=== PATIENT | male | born 1980 | race African-American/Black ===

== ENCOUNTER 2017-01-01 18:39 | Emergency (ER) | payer MEDICAID ==
[~2017-01-01] VITALS: Ht 170.2 cm; Wt 158.8 kg
[~2017-01-01 18:39] MED LIST: ALBUTEROL SULF8.5 GM INH; AUGMENTIN 875-1 EAC1 ORAL; AZITHROMYCIN250 MG ORAL; AZITHROMYCIN250 MG PO; CIPRO500 MG PO; IBUPROFEN800 MG ORAL; KEFLEX500 MG ORAL; NKM; NO MEDS; PHENAZOPYRIDIN200 MG ORAL; PHENERGAN/CODE120 ML PO; PROMETHAZINE-C118 ML PO; ROBITUSSIN DM5 ML ORAL
--- NOTE | 2017-01-01 19:25 | Emergency Room Report ---
History of Present Illness General Chief Complaint: Skin Rash/Abscess Source: Patient Present Illness HPI 36-year-old male presents to the emergency department complaining of a hard lump on the back of the right side of his neck since yesterday. Patient states that he has swelling, 7/10 in severity tenderness in addition to burning sensation. Patient states he may have been bitten by an insect. Patient denies fevers, chills or inability to move his neck. Patient states that it feels tight on the right side. Patient denies trauma or fall. He states he has a history of abscess in the past. Patient denies erythema or increased temperature palpation. Patient states he does not want any incisions made he wants to attempt oral antibiotics. Pt. denies itching, rash, or lesions elsewhere. Denies numbness tingling or loss of sensation or gross motor movements of the extremities, incontinence of bowel or bladder. Denies DM or hx of immune compromise. Denies CP, Palpitations, LOC, AMS, dizziness, Changes in Vision, Sensation, paresthesias, or a sudden severe headache. Allergies: Coded Allergies: No Known Allergies (Unverified , 05/04/16) Patient History Past Medical History: see triage record Past Surgical History: none Pertinent Family History: none Immunizations: UTD Reviewed Nursing Documentation: PMH: Agreed, PSxH: Agreed Nursing Documentation-PMH Past Medical History: No Stated History Review of Systems All Other Systems: negative except mentioned in HPI Physical Exam Vital Signs Date Time Temp Pulse Resp B/P Pulse Ox O2 Delivery O2 Flow Rate FiO2 01/01/17 18:43 98.1 81 18 97 Room Air Sp02 EP Interpretation: reviewed, normal General Appearance: no apparent distress, alert, GCS 15, non-toxic Head: normocephalic, atraumatic Eyes: bilateral eye PERRL, bilateral eye normal inspection ENT: hearing grossly normal, normal pharynx, no angioedema, normal voice Neck: full range of motion, no bony tend, supple/symm/no masses, tender lateral - right lateral ttp where 2cm induration palpated, no erythem or increased temperature to palpation, no palpable fluctuance noted. Respiratory: lungs clear, normal breath sounds, speaking full sentences Cardiovascular #1: regular rate, rhythm, no edema Rectal: deferred Genitourinary: normal inspection, no CVA tenderness Musculoskeletal: back normal, gait/station normal, normal range of motion, non- tender Neurologic: alert, oriented x3, responsive, motor strength/tone normal, sensory intact, speech normal Psychiatric: judgement/insight normal, memory normal, mood/affect normal Skin: normal color, no rash, warm/dry, well hydrated, other - right lateral ttp where 2cm induration palpated, no erythem or increased temperature to palpation, no palpable fluctuance noted. Lymphatic: no adenopathy Medical Decision Making PA Attestation Dr. Fontaine is my supervising Physician whom patient management has been discussed with. Diagnostic Impression: Primary Impression: Abscess ER Course 36-year-old male presents to the emergency department complaining of a hard lump on the back of the right side of his neck since yesterday. Patient states that he has swelling, 7/10 in severity tenderness in addition to burning sensation. Patient states he may have been bitten by an insect. Patient denies fevers, chills or inability to move his neck. Patient states that it feels tight on the right side. Patient denies trauma or fall. He states he has a history of abscess in the past. Patient denies erythema or increased temperature palpation. Patient states he does not want any incisions made he wants to attempt oral antibiotics. Pt. denies itching, rash, or lesions elsewhere. Denies numbness tingling or loss of sensation or gross motor movements of the extremities, incontinence of bowel or bladder. Denies DM or hx of immune compromise. Denies CP, Palpitations, LOC, AMS, dizziness, Changes in Vision, Sensation, paresthesias, or a sudden severe headache. Ddx considered but are not limited to cellulitis,insect bite, ingrown hair, folliculitis or abscess just to name a few. Vital signs: are WNL, pt. is afebrile H&PE are most consistent with soft tissue abscess of the right posterior neck, induration palpated, no fluctuance. ORDERS: none required at this time, the diagnosis is clinical ED INTERVENTIONS: -Pt. does not want I & D, and I feel that due to location if I & D were to be performed it should be done by a specialist. d/w pt. that he will be treated with oral abx, and that he should follow up with PCP , and if symptoms worsen or new symptoms appear he should return promptly to the ED. DISCHARGE: At this time pt. is stable for d/c to home. Will provide printed patient care instructions, and any necessary prescriptions. Care plan and follow up instructions have been discussed with the patient prior to discharge. Last Vital Signs Date Time Temp Pulse Resp B/P Pulse Ox O2 Delivery O2 Flow Rate FiO2 01/01/17 18:43 98.1 81 18 97 Room Air Disposition: HOME, SELF-CARE Condition: Stable Scripts Cyclobenzaprine Hcl* (FLEXERIL*) 10 Mg Tablet 10 MG ORAL THREE TIMES A DAY for 7 Days, #21 TAB Prov: Keyanna InmanA. 01/01/17 Ibuprofen* (MOTRIN*) 600 Mg Tablet 600 MG ORAL THREE TIMES A DAY, #20 TAB 0 Refills Prov: Keyanna Inman 01/01/17 Trimethoprim/Sulfamethoxazole 160/800* (BACTRIM DS TABLET*) 1 Each Tablet 1 TAB ORAL TWICE A DAY for 7 Days, #14 TAB Prov: Keyanna InmanA. 01/01/17 Cephalexin* (KEFLEX*) 500 Mg Capsule 500 MG ORAL EVERY 12 HOURS for 7 Days, #14 CAP 0 Refills Prov: Keyanna InmanA. 01/01/17 Referrals: NOT CHOSEN [facility]/MD,REFERRING (PCP) Patient Instructions: Abscess Additional Instructions: Take medications as directed. Recommend Incision & Drainage by [employer] or Spinal Specialist. Follow up with a Primary Care Provider in 3-5 days, even if your symptoms have resolved. --Please review list of primary care clinics, if you do not already have a primary care provider Return sooner to ED if new symptoms occur, or current symptoms become worse. - Please note that this Emergency Department Report was dictated using [employer]tube bender technology software, occasionally this can lead to erroneous entry secondary to interpretation by the dictation equipment. Keyanna Inman Jan 01, 2017 19:25
[2017-01-01] MEDS ORDERED: CYCLOBENZAPRINE10 MG ORAL (19:28)
[2017-01-01] MEDS ORDERED: CEPHALEXIN500 MG ORAL (19:28)
[2017-01-01] MEDS ORDERED: BACTRIM DS TAB1 EAC1 ORAL (19:28)
[2017-01-01] MEDS ORDERED: IBUPROFEN600 MG ORAL (19:28)
[2017-01-01 19:35] VITALS: BP 131/70
== END 2017-01-01 19:35 | disposition home or self-care (01) ==
LOC: EMR 19:15
DX: L02.11 Cutaneous abscess of neck (principal)
CPT/HCPCS: 99284

== ENCOUNTER 2017-07-06 18:24 | Emergency (ER) | payer MEDICAID, OTHER ==
[~2017-07-06] VITALS: Ht 172.7 cm; Wt 140.6 kg
[~2017-07-06 18:24] MED LIST changes: +BACTRIM DS TAB1 EAC1 ORAL; +CEPHALEXIN500 MG ORAL; +CYCLOBENZAPRINE10 MG ORAL; +IBUPROFEN600 MG ORAL
[2017-07-06] MEDS ORDERED: TAMIFLU75 MG ORAL (19:04)
[2017-07-06 19:10] VITALS: BP 163/106
[2017-07-06] MEDS ORDERED: PROMETHAZINE-C118 M1 ORAL (19:11)
[2017-07-06 19:12] VITALS: BP 161/95
--- NOTE | 2017-07-07 21:23 | Emergency Room Report ---
History of Present Illness General Chief Complaint: Upper Respiratory Illness Source: Patient Present Illness HPI 36-year-old male presents ED for evaluation. States he's been having flulike symptoms for the last 3 days. Febrile at home. Body aches, cough with yellowish sputum. Denies sore throat or earache. Denies chest pain or shortness of breath. Denies sick contacts or recent travel. No other aggravating or relieving factors. Denies any other associated symptoms Allergies: Coded Allergies: No Known Allergies (Unverified , 05/04/16) Patient History Past Medical History: none Past Surgical History: none Pertinent Family History: none Social History: Denies: smoking, alcohol use, drug use Immunizations: UTD Reviewed Nursing Documentation: PMH: Agreed, PSxH: Agreed Nursing Documentation-PMH Past Medical History: No Stated History Review of Systems All Other Systems: negative except mentioned in HPI Physical Exam Vital Signs Date Time Temp Pulse Resp B/P (MAP) Pulse Ox O2 Delivery O2 Flow Rate FiO2 07/06/18 18:28 97.9 95 28 163/106 90 Room Air Sp02 EP Interpretation: reviewed, normal General Appearance: no apparent distress, alert, GCS 15, non-toxic, obese Head: normocephalic, atraumatic Eyes: bilateral eye normal inspection, bilateral eye PERRL ENT: hearing grossly normal, normal pharynx, no angioedema, normal voice Neck: full range of motion, supple/symm/no masses Respiratory: chest non-tender, lungs clear, normal breath sounds, speaking full sentences Cardiovascular #1: regular rate, rhythm, no edema Cardiovascular #2: 2+ carotid (R), 2+ carotid (L), 2+ radial (R), 2+ radial (L) , 2+ dorsalis pedis (R), 2+ dorsalis pedis (L) Gastrointestinal: normal bowel sounds, non tender, soft, non-distended, no guarding, no rebound Rectal: deferred Genitourinary: normal inspection, no CVA tenderness Musculoskeletal: back normal, gait/station normal, normal range of motion, non- tender Neurologic: alert, oriented x3, responsive, motor strength/tone normal, sensory intact, speech normal Psychiatric: judgement/insight normal, memory normal, mood/affect normal, no suicidal/homicidal ideation Reflexes: 3+ bicep (R), 3+ bicep (L), 3+ tricep (R), 3+ tricep (L), 3+ knee (R) , 3+ knee (L) Skin: normal color, no rash, warm/dry, well hydrated Lymphatic: no adenopathy Medical Decision Making Diagnostic Impression: Primary Impression: Flu-like symptoms ER Course Hospital Course 36-year-old M presents to ED complaining of fever + bodyaches + cough Differential diagnoses include: URI, pharyngitis, otitis media, influenza Clinical course Patient placed on stretcher. After initial history physical exam reveals an obese male in no acute distress. Bilateral TM unremarkable, no pharyngeal erythema. Lungs clear. No CVA tenderness. Clinical findings consistent with influenza. Given that I will treat with Tamiflu Diagnosis - influenza-like symptoms Stable and discharged home with prescriptions for tamiflu, promethazine/ codeine. drink plenty of fluids. Instructed to followup with PMD. Return to ED if symptoms recur or worsen Last Vital Signs Date Time Temp Pulse Resp B/P (MAP) Pulse Ox O2 Delivery O2 Flow Rate FiO2 07/06/17 19:12 97.9 98 22 161/95 92 Room Air Status: improved Disposition: HOME, SELF-CARE Condition: Stable Scripts Codeine/Promethazine Hcl* (PROMETHAZINE-CODEINE SYRUP*) 118 Ml Syrup 5 ML ORAL Q6H Y for For Cough, #118 ML 0 Refills Prov: SHERWIN VELAZQUEZ M.D. 07/06/17 Oseltamivir Phosphate (Tamiflu) 75 Mg Capsule 75 MG ORAL TWICE A DAY for 5 Days, CAP Prov: SHERWIN VELAZQUEZ M.D. 07/06/17 Referrals: [facility]ERR[facility] (PCP) Patient Instructions: Influenza, Adult, [id number] SHERWIN VELAZQUEZ M.D. Jul 07, 2017 21:23
== END 2017-07-06 19:12 | disposition home or self-care (01) ==
LOC: EMR 19:05
DX: J11.1 Influenza due to unidentified influenza virus with other respiratory manifestations (principal)
CPT/HCPCS: 99283

== ENCOUNTER 2017-10-12 22:57 | Emergency (ER) | payer OTHER ==
[~2017-10-12] VITALS: Ht 172.7 cm; Wt 149.7 kg
[~2017-10-12 22:57] MED LIST changes: +PROMETHAZINE-C118 M1 ORAL; +TAMIFLU75 MG ORAL
[2017-10-12] MEDS ORDERED: NKM (23:31)
[2017-10-12] MEDS ORDERED: FUROSEMIDE40 MG ORAL (23:59)
[2017-10-13 00:19] VITALS: BP 141/85
--- NOTE | 2017-10-13 01:10 | Emergency Room Report ---
History of Present Illness General Chief Complaint: Edema Source: Patient Present Illness HPI Patient presents with complaints of swelling in his feet Initially complains of swelling in both feet however at times he feels a left foot more swollen than the right side This is been ongoing for several months Denies any chest pain or shortness of breath denies any fall or trauma Denies any calf pain or swelling Denies any recent travel Allergies: Coded Allergies: No Known Allergies (Unverified , 10/12/17) Patient History Past Medical History: see triage record Pertinent Family History: none Reviewed Nursing Documentation: PMH: Agreed; PSxH: Agreed Nursing Documentation-PMH Past Medical History: No History, Except For Review of Systems All Other Systems: negative except mentioned in HPI Physical Exam Vital Signs Date Time Temp Pulse Resp B/P (MAP) Pulse Ox O2 Delivery O2 Flow Rate FiO2 10/12/17 23:27 98.3 82 16 141/85 95 Room Air 98.2 Sp02 EP Interpretation: reviewed, normal General Appearance: well appearing, no apparent distress - Morbidly obese Head: normocephalic, atraumatic Eyes: bilateral eye PERRL, bilateral eye EOMI ENT: normal pharynx Neck: full range of motion, supple Respiratory: lungs clear Cardiovascular #1: regular rate, rhythm Gastrointestinal: non tender, soft Musculoskeletal: normal inspection Neurologic: alert, oriented x3, responsive, machine erector III-XII nml as tested Skin: other - Patient has dependent edema appearance on both feet, including the ankles, the cath itself is nontender, no erythema neurovascularly intact Lymphatic: no adenopathy Medical Decision Making Diagnostic Impression: Primary Impression: Edema ER Course Multiple differentials are considered including but not limited to, renal pathology, infectious, vascular pathology DVT Patient has bilateral dependent edema blood work from previous presentations reveal normal kidney function I do not feel that the presentation is consistent with DVT and patient is stable for close outpatient follow-up , Last Vital Signs Date Time Temp Pulse Resp B/P (MAP) Pulse Ox O2 Delivery O2 Flow Rate FiO2 10/13/17 00:19 98.3 16 141/85 95 Room Air 98.2 10/13/17 00:19 98 Status: unchanged Disposition: HOME, SELF-CARE Condition: Stable Scripts Furosemide* (LASIX*) 40 Mg Tablet 20 MG ORAL DAILY, #20 TAB Prov: Valentino Lewis DO 10/12/17 Referrals: [facility]ERR[facility] (PCP) Patient Instructions: Edema, [id number], Peripheral Edema Additional Instructions: Patient is provided with the discharge instructions notified to follow up with primary doctor in the next 2-3 days otherwise return to the er with any worsening symptoms. Please note that this report is being documented using [employer] technology. This can lead to erroneous entry secondary to incorrect interpretation by the dictating instrument. Valentino Lewis DO October 13, 2017 01:10
== END 2017-10-13 00:22 | disposition home or self-care (01) ==
LOC: EMR 23:40
DX: R60.0 Localized edema (principal)
CPT/HCPCS: 99283

== ENCOUNTER 2018-01-14 00:22 | Emergency (ER) | payer OTHER ==
[~2018-01-14] VITALS: Ht 172.7 cm; Wt 140.6 kg
[~2018-01-14 00:22] MED LIST changes: +FUROSEMIDE40 MG ORAL
[2018-01-14] MEDS ORDERED: IBUPROFEN600 MG ORAL (01:35)
[2018-01-14] MEDS ORDERED: GENTAMICIN SULF15 ML OP (01:35)
[2018-01-14 01:50] VITALS: BP 115/70
[2018-01-14 01:56] VITALS: BP 115/70
--- NOTE | 2018-01-14 03:44 | Emergency Room Report ---
History of Present Illness General Chief Complaint: Eye Problems Source: Patient Present Illness HPI Patient reports that 2 days ago he was working with a bunAGRIMAPSe cord, when the end of the cord essentially sprung up and hit him in the right eye. Patient has some discomfort at that time, given that the discomfort has now persisted he presents to the ER He felt that there was some swelling around the eye as well Denies any visual change However he does feel some irritation on the right side Denies any headache Allergies: Coded Allergies: No Known Allergies (Unverified , 10/12/17) Patient History Past Medical History: see triage record Pertinent Family History: none Reviewed Nursing Documentation: PMH: Agreed; PSxH: Agreed Nursing Documentation-PMH Past Medical History: No Stated History Review of Systems All Other Systems: negative except mentioned in HPI Physical Exam Vital Signs Date Time Temp Pulse Resp B/P (MAP) Pulse Ox O2 Delivery O2 Flow Rate FiO2 01/14/18 00:39 98.2 86 16 115/70 95 Room Air 98.2 Sp02 EP Interpretation: reviewed, normal General Appearance: well appearing, no apparent distress Head: normocephalic, atraumatic Eyes: right eye other - Conjunctival irritation, fluorescing staining does not reveal any obvious uptake no foreign body. Pressures are equal subjectively on palpation; bilateral eye PERRL, bilateral eye EOMI ENT: normal pharynx, no angioedema Neck: supple Respiratory: lungs clear, normal breath sounds Musculoskeletal: normal inspection Neurologic: alert, oriented x3, responsive Skin: normal color, no rash Lymphatic: no adenopathy Medical Decision Making Diagnostic Impression: Primary Impression: corneal abrasion ER Course Patient has corneal injection, appears to have likely corneal abrasion, there is no signs of any ruptured globe, patient will be placed on antibiotic ointment , pain medication and requires close outpatient ophthalmology follow-up Last Vital Signs Date Time Temp Pulse Resp B/P (MAP) Pulse Ox O2 Delivery O2 Flow Rate FiO2 01/14/18 01:56 98.2 82 16 115/70 98 Room Air Status: unchanged Disposition: HOME, SELF-CARE Condition: Stable Scripts Ibuprofen* (MOTRIN*) 600 Mg Tablet 600 MG ORAL Q8H PRN for For Pain, #20 TAB 0 Refills Prov: Valentino Lewis DO 01/14/18 Gentamicin Sulfate (Gentamicin Sulfate) 5 Ml Drops 2 DROP OP BID for 7 Days, ML Prov: Valentino Lewis DO 01/14/18 Referrals: Darien Echeverria MD Departure Forms: Return to Work Return to Work in (Days): 1 Return to Work Date: Jan 15, 2018 Patient Instructions: Corneal Abrasion, [id number] Additional Instructions: Patient is provided with the discharge instructions notified to follow up Ophthalmology tomorrow. otherwise return to the er with any worsening symptoms. Please note that this report is being documented using [employer] technology. This can lead to erroneous entry secondary to incorrect interpretation by the dictating instrument. Valentino Lewis DO Jan 14, 2018 03:44
== END 2018-01-14 01:58 | disposition home or self-care (01) ==
LOC: EMR 01:00
DX: S05.01XA Injury of conjunctiva and corneal abrasion without foreign body, right eye, initial encounter (principal); W20.8XXA Other cause of strike by thrown, projected or falling object, initial encounter; Y93.89 Activity, other specified; Y92.89 Other specified places as the place of occurrence of the external cause
CPT/HCPCS: 99283

== ENCOUNTER 2018-04-07 21:51 | Emergency (ER) | payer MEDICAID, OTHER ==
[~2018-04-07] VITALS: Ht 172.7 cm; Wt 140.6 kg
[~2018-04-07 21:51] MED LIST changes: +GENTAMICIN SULF15 ML OP
[2018-04-07 22:08] VITALS: BP 128/74
[2018-04-07] MEDS ORDERED: Bactrim-DS 1 tab ORAL ONE (22:45)
[2018-04-07] MEDS ORDERED: BACTRIM DS TAB1 EAC1 ORAL (22:48)
--- NOTE | 2018-04-07 22:49 | Emergency Room Report ---
History of Present Illness General Chief Complaint: Skin Rash/Abscess Source: Patient Present Illness HPI This is a 37-year-old male with no past medical history. He presents with chief complaint of swelling and drainage from the neck. Onset was last night. He said he felt fever and chills last night. There was a big golf ball side abscess on his neck. It started draining. He came in to be reevaluated better now. Minimal pain. No nausea no vomiting. Fever resolved. Thought he may have had a spider bite. Allergies: Coded Allergies: No Known Allergies (Unverified , 10/12/17) Patient History Past Medical History: see triage record, old chart reviewed Past Surgical History: none Pertinent Family History: none Social History: Denies: smoking Immunizations: other Reviewed Nursing Documentation: PMH: Agreed; PSxH: Agreed Nursing Documentation-PMH Past Medical History: No History, Except For Review of Systems Eye: Denies: eye pain, blurred vision ENT: Denies: ear pain, nose congestion, throat swelling Respiratory: Denies: cough, shortness of breath Cardiovascular: Denies: chest pain, palpitations Gastrointestinal: Denies: abdominal pain, diarrhea, nausea, vomiting Musculoskeletal: Denies: back pain, joint pain Skin: Denies: rash Neurological: Denies: headache, numbness Endocrine: Denies: increased thirst, increased urine Hematologic/Lymphatic: Denies: easy bruising All Other Systems: negative except mentioned in HPI Physical Exam Vital Signs Date Time Temp Pulse Resp B/P (MAP) Pulse Ox O2 Delivery O2 Flow Rate FiO2 04/07/18 21:58 98.1 94 18 128/74 93 Room Air vitals normal Sp02 EP Interpretation: reviewed, normal General Appearance: well appearing, no apparent distress, alert, obese Head: normocephalic, atraumatic Eyes: bilateral eye PERRL, bilateral eye EOMI ENT: hearing grossly normal, normal pharynx Neck: full range of motion, supple, no meningismus, other - Posterior neck: There is purulent discharge from a small center. Respiratory: chest non-tender, lungs clear, normal breath sounds Cardiovascular #1: regular rate, rhythm, no murmur Gastrointestinal: normal bowel sounds, non tender, no mass, no organomegaly, no bruit, non-distended Musculoskeletal: back normal, gait/station normal, normal range of motion Psychiatric: mood/affect normal Skin: warm/dry Procedures Incision and Drainage Incision and Drainage : Consent: Verbal Site: posterior neck Blade Size: 11 I & D Procedure: betadine prep Wound Location: neck Anesthesia: Lidocaine w/ Epi Volume Anesthetic (ccs): 3 Patient Tolerated: Well Complications: None Progress I cleaned the area with Betadine. Local anesthetic 1% lidocaine with epinephrine. I made a 2 cm incision. There was small to moderate amount of pus expressed. Dressing placed. Top patient tolerated procedure without a problem. Medical Decision Making Diagnostic Impression: Primary Impression: Abscess ER Course Patient with an abscess to the posterior neck. No evidence of deep infection or necrotizing fasciitis. Patient felt better now. Most likely MRSA. We'll discharge home. Last Vital Signs Date Time Temp Pulse Resp B/P (MAP) Pulse Ox O2 Delivery O2 Flow Rate FiO2 04/07/18 22:08 98.1 94 18 128/74 93 Room Air Status: improved Disposition: HOME, SELF-CARE Condition: Stable Scripts Trimethoprim/Sulfamethoxazole 160/800* (BACTRIM DS TABLET*) 1 Each Tablet 1 TAB ORAL Q12H, #14 TAB 0 Refills Prov: Victor M Arevalo MD 04/07/18 Referrals: [facility] (PCP) Patient Instructions: Abscess Additional Instructions: Keep wound clean. Follow-up with your DrToni in 2-3 days for recheck. Return if worse. Victor M Arevalo MD Apr 07, 2018 22:49
[2018-04-07 23:27] VITALS: BP 128/74
== END 2018-04-07 23:29 | disposition home or self-care (01) ==
LOC: EMR 22:42
DX: L02.11 Cutaneous abscess of neck (principal); T63.301A Toxic effect of unspecified spider venom, accidental (unintentional), initial encounter; Y92.89 Other specified places as the place of occurrence of the external cause; F17.200 Nicotine dependence, unspecified, uncomplicated
CPT/HCPCS: 10060; 99283

== ENCOUNTER 2018-04-29 21:17 | Emergency (ER) | payer MEDICAID ==
[~2018-04-29] VITALS: Ht 172.7 cm; Wt 140.6 kg
[2018-04-29 21:42] VITALS: BP 100/59
[2018-04-29] MEDS ORDERED: NKM (21:47)
[2018-04-29] MEDS ORDERED: Ketorolac 30mg Inj IM ONE (22:00)
[2018-04-29] MEDS ORDERED: IBUPROFEN600 MG ORAL (22:23)
[2018-04-29] MEDS ORDERED: TRAMADOL HCL50 MG ORAL (22:23)
[2018-04-29 22:30] VITALS: BP 108/60
--- NOTE | 2018-04-30 00:48 | Emergency Room Report ---
History of Present Illness General Chief Complaint: Pain Source: Patient Present Illness HPI 37-year-old male presents ED for evaluation. Complaining of right knee pain 1 day. Denies any recent injury. States he injured his knee years ago. Not seek medical attention at that time. States he's been trying to exercise again with increased walking. Pain is throbbing, 8 out of 10, nonradiating. Able to bear weight. No other aggravating relieving factors. Denies any other associated symptoms Allergies: Coded Allergies: No Known Allergies (Unverified , 10/12/17) Patient History Past Medical History: none Past Surgical History: none Pertinent Family History: none Social History: Denies: smoking, alcohol use, drug use Immunizations: UTD Reviewed Nursing Documentation: PMH: Agreed; PSxH: Agreed Review of Systems All Other Systems: negative except mentioned in HPI Physical Exam Vital Signs Date Time Temp Pulse Resp B/P (MAP) Pulse Ox O2 Delivery O2 Flow Rate FiO2 04/29/18 21:42 97.9 90 16 100/59 92 Room Air Sp02 EP Interpretation: reviewed, normal General Appearance: no apparent distress, alert, GCS 15, non-toxic, obese Head: normocephalic Eyes: bilateral eye normal inspection, bilateral eye PERRL ENT: normal ENT inspection Neck: normal inspection Respiratory: normal inspection Cardiovascular #1: normal inspection Gastrointestinal: normal inspection Rectal: deferred Genitourinary: no CVA tenderness Musculoskeletal: tender - R knee Neurologic: alert, oriented x3, responsive, motor strength/tone normal, sensory intact, speech normal Psychiatric: normal inspection Skin: normal inspection Lymphatic: normal inspection Medical Decision Making Diagnostic Impression: Primary Impression: Knee pain Qualified Codes: M25.561 - Pain in right knee; G89.29 - Other chronic pain ER Course Hospital Course 37-year-old male presents to ED complaining of R knee pain no trauma Differential diagnoses include: Fracture, dislocation, sprain, contusion, bursitis Clinical course Patient placed on stretcher. After initial history, physical exam reveals an obese male in no acute distress. Is full range of motion to the right knee. No crepitus or bruising. No joint laxity. Unlikely any evidence of fracture or dislocation. Given patient's body habitus consideration for degenerative joint disease. I offered x-rays but patient declined. Given Toradol here. We will discharge with pain meds and orthopedic referral Diagnosis - knee pain stable and discharged to home with prescription for Motrin, tramadol. Followup with PMD/ortho. Return to ED if symptoms recur or worsen Last Vital Signs Date Time Temp Pulse Resp B/P (MAP) Pulse Ox O2 Delivery O2 Flow Rate FiO2 04/29/18 22:47 97.9 04/29/18 22:30 84 18 108/60 98 Room Air Status: improved Disposition: HOME, SELF-CARE Condition: Stable Scripts Tramadol Hcl* (ULTRAM*) 50 Mg Tablet 50 MG ORAL Q6H PRN for For Pain for 3 Days, TAB 0 Refills Prov: Heladio Little MD 04/29/18 Ibuprofen* (MOTRIN*) 600 Mg Tablet 600 MG ORAL Q8H PRN for For Pain, #30 TAB 0 Refills Prov: Heladio Little MD 04/29/18 Referrals: [facility] (PCP) Patient Instructions: Knee Pain, [id number] Heladio Little MD Apr 30, 2018 00:48
== END 2018-04-29 22:30 | disposition home or self-care (01) ==
LOC: EMR 21:27
DX: M25.561 Pain in right knee (principal); G89.29 Other chronic pain
CPT/HCPCS: 96372; 99283; J1885

== ENCOUNTER 2018-05-12 20:51 | Emergency (ER) | payer MEDICAID ==
[~2018-05-12] VITALS: Ht 172.7 cm; Wt 140.6 kg
[~2018-05-12 20:51] MED LIST changes: +TRAMADOL HCL50 MG ORAL
[2018-05-12 21:06] VITALS: BP 123/71
[2018-05-12 22:00] VITALS: BP 138/75
[2018-05-12] MEDS ORDERED: ZOFRAN4 MG ORAL (22:05)
--- NOTE | 2018-05-12 22:05 | Emergency Room Report ---
History of Present Illness General Chief Complaint: Nausea, Vomiting, and Diarrhea Source: Patient Present Illness [facility] This 37-year-old male with no significant past medical history. He presents with chief complaint of nausea vomiting and diarrhea. Onset was last night. Symptom slow down already. Able to tolerate some liquids today. Denies any fever or chills. Denies any sick contact. Vomiting is nonbloody and nonbilious. Diarrhea is watery. Not much pain. Allergies: Coded Allergies: No Known Allergies (Unverified , 10/12/17) Patient History Past Medical History: see triage record, old chart reviewed Past Surgical History: none Pertinent Family History: none Social History: Denies: smoking Immunizations: other Reviewed Nursing Documentation: PMH: Agreed; PSxH: Agreed Nursing Documentation-PMH Past Medical History: No History, Except For Review of Systems Eye: Denies: eye pain, blurred vision ENT: Denies: ear pain, nose congestion, throat swelling Respiratory: Denies: cough, shortness of breath Cardiovascular: Denies: chest pain, palpitations Gastrointestinal: Reports: diarrhea, nausea, vomiting; Denies: abdominal pain Musculoskeletal: Denies: back pain, joint pain Skin: Denies: rash Neurological: Denies: headache, numbness Endocrine: Denies: increased thirst, increased urine Hematologic/Lymphatic: Denies: easy bruising All Other Systems: negative except mentioned in HPI Physical Exam Vital Signs Date Time Temp Pulse Resp B/P (MAP) Pulse Ox O2 Delivery O2 Flow Rate FiO2 05/12/18 21:04 98.4 86 16 121/75 92 Room Air vitals normal Sp02 EP Interpretation: reviewed, normal General Appearance: well appearing, no apparent distress, alert, obese Head: normocephalic, atraumatic Eyes: bilateral eye PERRL, bilateral eye EOMI ENT: hearing grossly normal, normal pharynx Neck: full range of motion, supple, no meningismus Respiratory: chest non-tender, lungs clear, normal breath sounds Cardiovascular #1: regular rate, rhythm, no murmur Gastrointestinal: normal bowel sounds, non tender, no mass, no organomegaly, no bruit, non-distended Musculoskeletal: back normal, gait/station normal, normal range of motion Psychiatric: mood/affect normal Skin: warm/dry Medical Decision Making Diagnostic Impression: Primary Impression: Nausea, vomiting, and diarrhea ER Course Patient with nausea vomiting and diarrhea. No pain. Most likely a gastroenteritis from viral infection. Is tolerating by mouth here. Since there is no pain I see no need for CAT scan for blood work. He appear well. No evidence of acute abdomen or obstruction. We'll discharge home. Last Vital Signs Date Time Temp Pulse Resp B/P (MAP) Pulse Ox O2 Delivery O2 Flow Rate FiO2 05/12/18 21:06 98.2 88 16 123/71 95 Room Air Status: improved Disposition: HOME, SELF-CARE Condition: Stable Scripts Ondansetron (Zofran) 4 Mg Tablet 4 MG ORAL Q6H PRN for Nausea & Vomiting, #10 TAB 0 Refills Prov: Victor M Arevalo MD 05/12/18 Victor M Arevalo MD May 12, 2018 22:05
[2018-05-12 22:10] VITALS: BP 138/75
== END 2018-05-12 23:02 | disposition home or self-care (01) ==
LOC: EMR 22:15
DX: R11.2 Nausea with vomiting, unspecified (principal); R19.7 Diarrhea, unspecified
CPT/HCPCS: 99282

== ENCOUNTER 2018-06-14 22:17 | Emergency (ER) | payer MEDICAID ==
[~2018-06-14] VITALS: Ht 172.7 cm; Wt 140.6 kg
[~2018-06-14 22:17] MED LIST changes: +ZOFRAN4 MG ORAL
[2018-06-14 22:42] VITALS: BP 137/88
[2018-06-14] MEDS ORDERED: AMOXICILLIN500 MG ORAL (23:42)
[2018-06-14] MEDS ORDERED: IBUPROFEN600 MG ORAL (23:42)
--- NOTE | 2018-06-14 23:42 | Emergency Room Report ---
History of Present Illness General Chief Complaint: Flu Like Symptoms Source: Patient Present Illness HPI Patient presents with complaints of sore throat nasal congestion There was initially note regarding vomiting and diarrhea feeling ill however patient mainly complains of the sore throat Denies any chest pain denies any vomiting or diarrhea at this time she did have some epigastric discomfort previously and missed 2 days of work Denies any posterior neck pain or photophobia denies any recent travel or trauma Allergies: Coded Allergies: No Known Allergies (Unverified , 06/14/18) Patient History Past Medical History: see triage record Pertinent Family History: none Reviewed Nursing Documentation: PMH: Agreed; PSxH: Agreed Nursing Documentation-PMH Past Medical History: No Stated History Review of Systems All Other Systems: negative except mentioned in HPI Physical Exam Vital Signs Date Time Temp Pulse Resp B/P (MAP) Pulse Ox O2 Delivery O2 Flow Rate FiO2 06/14/18 22:33 98.4 84 16 144/90 95 Room Air Sp02 EP Interpretation: reviewed, normal General Appearance: well appearing, no apparent distress Head: normocephalic, atraumatic Eyes: bilateral eye PERRL, bilateral eye EOMI ENT: no angioedema, normal voice, pharyngeal erythema Neck: full range of motion, supple Respiratory: lungs clear Cardiovascular #1: regular rate, rhythm Gastrointestinal: normal bowel sounds, non tender, soft Musculoskeletal: normal inspection Neurologic: alert, oriented x3, responsive Skin: normal color, no rash Lymphatic: no adenopathy Medical Decision Making Diagnostic Impression: Primary Impression: Pharyngitis ER Course Patient appears to have findings consistent with pharyngitis there was some Consistently with URI as well Patient is provided prescriptions and will have initial conservative outpatient trial Last Vital Signs Date Time Temp Pulse Resp B/P (MAP) Pulse Ox O2 Delivery O2 Flow Rate FiO2 06/14/18 22:33 98.4 84 16 144/90 95 Room Air Status: improved Disposition: HOME, SELF-CARE Condition: Stable Additional Instructions: Patient is provided with the discharge instructions notified to follow up with primary doctor in the next 2-3 days otherwise return to the er with any worsening symptoms. Please note that this report is being documented using [employer] technology. This can lead to erroneous entry secondary to incorrect interpretation by the dictating instrument. Valentino Lewis DO Jun 14, 2018 23:41
[2018-06-14 23:45] VITALS: BP 137/88
== END 2018-06-14 23:46 | disposition home or self-care (01) ==
LOC: EMR 22:48
DX: J02.9 Acute pharyngitis, unspecified (principal)
CPT/HCPCS: 99282

== ENCOUNTER 2018-07-11 22:41 | Emergency (ER) | payer MEDICAID ==
[~2018-07-11] VITALS: Ht 172.7 cm; Wt 140.6 kg
[~2018-07-11 22:41] MED LIST changes: +AMOXICILLIN500 MG ORAL
[2018-07-11] MEDS ORDERED: NKM (22:47)
--- NOTE | 2018-07-11 22:50 | NUR ---
ED Nurse Note: Patient walked into ED c/o of flu like symptoms, complains of nose congestion 7/10 pain. as of now, pt denies and nausea, diahhrea, or vomiting.
[2018-07-11 23:02] VITALS: BP 139/83
[2018-07-11] MEDS ORDERED: ZITHROMAX250 MG ORAL (23:11)
[2018-07-11] MEDS ORDERED: IBUPROFEN600 MG ORAL (23:11)
[2018-07-11] MEDS ORDERED: PSEUDOEPHEDRINE60 MG PO (23:11)
--- NOTE | 2018-07-11 23:11 | Emergency Room Report ---
History of Present Illness General Chief Complaint: Flu Like Symptoms Source: Patient Present Illness [facility] This a 37-year-old male with no past medical history. He presents with chief complaint of sore throat. Onset for last 3 days. Initially had fever. No nausea no vomiting. Also with congestion. Worse with swallowing. Worse with laying flat. Denies any coughing. Pain is 8 out of 10. No drooling. Allergies: Coded Allergies: No Known Allergies (Unverified , 06/14/18) Patient History Past Medical History: none, see triage record, old chart reviewed Past Surgical History: none Pertinent Family History: none Social History: Denies: smoking Immunizations: other Reviewed Nursing Documentation: PMH: Agreed; PSxH: Agreed Nursing Documentation-PMH Past Medical History: No History, Except For Review of Systems Constitutional: Reports: fever Eye: Denies: eye pain, blurred vision ENT: Reports: nose congestion, throat pain, throat swelling; Denies: ear pain Respiratory: Denies: cough, shortness of breath Cardiovascular: Denies: chest pain, palpitations Gastrointestinal: Denies: abdominal pain, diarrhea, nausea, vomiting Musculoskeletal: Denies: back pain, joint pain Skin: Denies: rash Neurological: Denies: headache, numbness Endocrine: Denies: increased thirst, increased urine Hematologic/Lymphatic: Denies: easy bruising All Other Systems: negative except mentioned in HPI Physical Exam Vital Signs Date Time Temp Pulse Resp B/P (MAP) Pulse Ox O2 Delivery O2 Flow Rate FiO2 07/11/18 22:43 98.4 92 18 139/83 92 Room Air 07/11/18 23:02 99 vitals normal Sp02 EP Interpretation: reviewed, normal General Appearance: well appearing, no apparent distress, alert Head: normocephalic, atraumatic Eyes: bilateral eye PERRL, bilateral eye EOMI ENT: hearing grossly normal, uvula midline - Enlarged, tonsillar swelling, pharyngeal erythema Neck: full range of motion, supple, no meningismus Respiratory: chest non-tender, lungs clear, normal breath sounds Cardiovascular #1: regular rate, rhythm, no murmur Gastrointestinal: normal bowel sounds, non tender, no mass, no organomegaly, no bruit, non-distended Musculoskeletal: back normal, gait/station normal, normal range of motion Psychiatric: mood/affect normal Skin: warm/dry Medical Decision Making Diagnostic Impression: Primary Impression: Pharyngitis Qualified Codes: J02.9 - Acute pharyngitis, unspecified ER Course Patient with a pharyngitis. Most likely viral in nature. No evidence of tonsillar abscess, retropharyngeal abscess, Remi angina or sepsis. Last Vital Signs Date Time Temp Pulse Resp B/P (MAP) Pulse Ox O2 Delivery O2 Flow Rate FiO2 07/11/18 23:02 98.4 90 18 139/83 92 Room Air 07/11/18 23:02 99 Status: unchanged Disposition: HOME, SELF-CARE Condition: Stable Scripts Azithromycin* (ZITHROMAX*) 250 Mg Tablet 250 MG ORAL DAILY, #6 TAB 0 Refills Take two tables once daily for 1 day, then one tablet once daily for 4 days. Prov: Victor M Arevalo MD 07/11/18 Pseudoephedrine Hcl* (SUDAFED*) 60 Mg Tablet 60 MG PO Q6H, #20 TAB Prov: Victor M Arevalo MD 07/11/18 Ibuprofen* (MOTRIN*) 600 Mg Tablet 600 MG ORAL THREE TIMES A DAY, #30 TAB 0 Refills Prov: Victor M Arevalo MD 07/11/18 Additional Instructions: Increase fluids. Salt water gargle. Follow-up with your doctor in 7 days. Return if worse. Victor M Arevalo MD Jul 11, 2018 23:11
--- NOTE | 2018-07-11 23:15 | NUR ---
ED Nurse Note: PT is Dc per ERMD order. pt is stable for DC. pt is alert and oriented times 4. pt left with all DC notes and prescriptions and belongings. pt is able to teach back DC notes. pt is instructed to follow up with primary MD as soon as possible. pt vital signs is stable. pt status, condition and vital signs reported to ERMD prior to DC. pt ID band removed.
[2018-07-11 23:16] VITALS: BP 139/83
== END 2018-07-11 23:15 | disposition home or self-care (01) ==
LOC: EMR 23:00
DX: J02.9 Acute pharyngitis, unspecified (principal)
CPT/HCPCS: 99282

== ENCOUNTER 2018-08-24 21:09 | Emergency (ER) | payer MEDICAID ==
[~2018-08-24] VITALS: Ht 172.7 cm; Wt 140.6 kg
[~2018-08-24 21:09] MED LIST changes: +PSEUDOEPHEDRINE60 MG PO; +ZITHROMAX250 MG ORAL
[2018-08-24] MEDS ORDERED: NKM (21:15)
--- NOTE | 2018-08-24 21:25 | NUR ---
ED Nurse Note: Patient walked into ED c/o swollen right foot that started last night. 11/08 pain. AO4. NAD.
--- NOTE | 2018-08-24 21:38 | Emergency Room Report ---
History of Present Illness General Chief Complaint: General Complaint Source: Patient Present Illness HPI The patient presents with 3 days of right heel pain. It radiates somewhat into his lower leg. Denies any calf pain. He took ibuprofen 2 days ago. It helped slightly. The pain is worse in the morning. It's aching and he feels swelling there. He denies any fevers or chills. There's no chest pain or shortness of breath. Today he also noted some numbness in his fingers of his left hand. He denies any headache, chest pain, palpitations or risk factors for stroke aside from obesity. 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 Reviewed Nursing Documentation: PMH: Agreed; PSxH: Agreed Nursing Documentation-PM Past Medical History: No History, Except For Review of Systems All Other Systems: negative except mentioned in HPI Physical Exam Vital Signs Date Time Temp Pulse Resp B/P (MAP) Pulse Ox O2 Delivery O2 Flow Rate FiO2 08/24/18 21:11 99.0 85 18 125/67 95 Room Air General Appearance: no apparent distress, GCS 15, obese Head: normocephalic, atraumatic Eyes: bilateral eye normal inspection, bilateral eye PERRL, bilateral eye EOMI ENT: hearing grossly normal, normal voice Neck: full range of motion, supple Respiratory: chest non-tender, lungs clear, normal breath sounds Cardiovascular #1: regular rate, rhythm, edema - Trace bilaterally Musculoskeletal: no calf tenderness, other - Homans negative, bilateral heel pain consi plantar fasciitis. Ankle ligaments are st Neurologic: oriented x3, employee relations representative III-XII nml as tested, motor strength/tone normal , sensory intact - Subjective paresthesias left index middle and ring finger, cerebellar normal, speech normal Psychiatric: mood/affect normal Skin: normal color, no rash, other - Hyperpigmentation around eyes Medical Decision Making Diagnostic Impression: Primary Impression: Plantar fasciitis of right foot Additional Impressions: Paresthesia Bone spur ER Course Patient with right heel pain for 3 days. Differential includes heel spur, plantar fasciitis, contusion amongst others. X-rays are indicated. Also the patient will be given ibuprofen. He also complains about numbness in his index middle and ring finger of his left hand. He is not diabetic nor hypertensive but has obesity. The rest of his neurologic exam is completely normal at this time. EKG and accucheck will be done. He's uncertain if he might have slept on it wrong. EKG without injury. Foot x-ray with heel spur. Improved with treatment. Numbness is resolved. Accu-Chek was 124. Discussed treatment plan with patient. He is advised to follow-up with his doctor to have further evaluation of this problem as well as the numbness. EKG Diagnostic Results Rate: normal Rhythm: NSR ST Segments: no acute changes Rhythm Strip Diag. Results EP Interpretation: yes Rhythm: NSR, no PVC's, no ectopy Other X-Ray Diagnostic Results Other X-Ray Diagnostic Results : X-Ray ordered: r foot # of Views/Limited Vs Complete: 3 View Indication: Other EP Interpretation: Yes Interpretation: no dislocation, no soft tissue swelling, no fractures, other - bone spur Impression: Other Electronically Signed by: Electronically signed by Ivan Alex MD Last Vital Signs Date Time Temp Pulse Resp B/P (MAP) Pulse Ox O2 Delivery O2 Flow Rate FiO2 08/24/18 22:40 99.0 84 18 125/67 95 Room Air Status: improved Disposition: HOME, SELF-CARE Condition: Improved Scripts Acetaminophen (Tylenol) 325 Mg Tablet 650 MG ORAL Q6H PRN for Prn Pain/Headache/Temp > 101, #20 TAB 0 Refills Prov: Ivan Alex MD 08/24/18 Ibuprofen* (MOTRIN*) 600 Mg Tablet 600 MG ORAL Q6H PRN for For Pain, #20 TAB Prov: Ivan Alex MD 08/24/18 Ivan Alex MD Aug 24, 2018 21:38
[2018-08-24 21:54] VITALS: BP 125/67
[2018-08-24] MEDS ORDERED: IBUPROFEN600 MG ORAL (22:38)
[2018-08-24] MEDS ORDERED: TYLENOL325 MG ORAL (22:38)
[2018-08-24 22:40] VITALS: BP 125/67
--- NOTE | 2018-08-24 22:40 | NUR ---
ER DISCHARGE NOTE: Patient is cleared to be discharged per ERMD, pt is aox4, on room air, with stable vital signs. pt was given dc and prescription instructions, pt was able to verbalize understanding, pt id removed. pt is able to ambulate with steady gait. pt took all belongings.
--- NOTE | 2018-08-25 11:21 | Diagnostic Imaging Report ---
Indication: Foot Pain Comparison: None Findings: 3 views of the right foot were obtained. No acute fractures, malalignment, erosions or periostitis are identified. Soft tissues are unremarkable. Impression: No acute findings.
--- NOTE | 2018-08-25 14:49 | Cardiology Report ---
APPROVED REPORT EKG Measurement Heart [id number] Normal sinus rhythm Normal ECG
== END 2018-08-24 22:40 | disposition home or self-care (01) ==
LOC: EMR 21:28
DX: M72.2 Plantar fascial fibromatosis (principal); R20.2 Paresthesia of skin
CPT/HCPCS: 93005; 99283

== ENCOUNTER 2018-09-06 19:33 | Emergency (ER) | payer MEDICAID ==
[~2018-09-06] VITALS: Ht 172.7 cm; Wt 140.6 kg
[~2018-09-06 19:33] MED LIST changes: +TYLENOL325 MG ORAL
--- NOTE | 2018-09-06 20:18 | Emergency Room Report ---
History of Present Illness General Chief Complaint: Lower Extremity Injury Source: Patient Present Illness HPI 37-year-old male presents to the emergency department complaining of 7 out of 10 in severity pain localized to the left anterior lateral knee progressive 2 days. Denies trauma or fall. Patient states that he has been over compensating as his right foot has been giving him a lot of pain. Pt. has plantar fasciitis of the right foot. reports pain with weight bearing on the left leg. states feels unstable at times, reports swelling, denies clicking or obvious deformity. Denies erythema or warmth, denies recent open wound near site of pain. pt. reports previous hx of growth plate sx. in the left knee at age of 11. Denies paresthesias. Allergies: Coded Allergies: No Known Allergies (Unverified , 06/14/18) Patient History Past Medical History: see triage record Past Surgical History: none Pertinent Family History: none Reviewed Nursing Documentation: PMH: Agreed; PSxH: Agreed Nursing Documentation-PMH Past Medical History: No History, Except For Review of Systems All Other Systems: negative except mentioned in HPI Physical Exam Vital Signs Date Time Temp Pulse Resp B/P (MAP) Pulse Ox O2 Delivery O2 Flow Rate FiO2 09/06/18 19:43 98.2 87 24 140/79 95 Room Air Sp02 EP Interpretation: reviewed, normal General Appearance: no apparent distress, alert, GCS 15, non-toxic, obese Head: normocephalic, atraumatic Eyes: bilateral eye normal inspection, bilateral eye PERRL ENT: hearing grossly normal, normal voice Neck: full range of motion Respiratory: lungs clear, normal breath sounds, speaking full sentences Cardiovascular #1: regular rate, rhythm Musculoskeletal: back normal, gait/station normal, normal range of motion, tender - anteriorlateral left knee, no increased laxity, no clicking, surgical deformity and scar noted, no erythema or warmth. no obvious swelling. Neurologic: alert, oriented x3, responsive, motor strength/tone normal, sensory intact, speech normal, grossly normal Psychiatric: judgement/insight normal Skin: normal color, no rash, warm/dry, well hydrated, other - no warmth or erythema Lymphatic: no adenopathy Medical Decision Making PA Attestation Dr. Zhang is my supervising Physician whom patient management has been discussed with. Diagnostic Impression: Primary Impression: Left knee sprain Qualified Codes: S83.92XA - Sprain of unspecified site of left knee, initial encounter Additional Impression: Overuse syndrome of lower leg Qualified Codes: S86.912A - Strain of unspecified muscle(s) and tendon(s) at lower leg level, left leg, initial encounter ER Course 37-year-old male presents to the emergency department complaining of 7 out of 10 in severity pain localized to the left anterior lateral knee progressive 2 days. Denies trauma or fall. Patient states that he has been over compensating as his right foot has been giving him a lot of pain. Pt. has plantar fasciitis of the right foot. reports pain with weight bearing on the left leg. states feels unstable at times, reports swelling, denies clicking or obvious deformity. Denies erythema or warmth, denies recent open wound near site of pain. pt. reports previous hx of growth plate sx. in the left knee at age of 11. Denies paresthesias. Ddx considered but are not limited to Fracture, dislocation, contusion, Sprain/ Strain/Spasm, meniscal injury Vital signs: are WNL, pt. is afebrile H&PE are most consistent with musculoskeletal injury will perform imaging to r/ o fractures/dislocations. ORDERS: - X-ray Left knee 3 views - negative for fx, Dislocation, or significant soft tissue injury, per preliminary read in ED, and signed by ANUP Inman, my supervising physician has reviewed, and agrees with my interpretation. ED INTERVENTIONS: - Motrin 600mg PO -Abhijit wrap applied to the left knee by lubrication technician. Pt. remains neurovascularly intact. -Patient is provided with crutches and instructed on their use -I do not identify an emergent condition at this time. With current presentation , pt. is stable for close outpatient follow up and conservative treatment. D/ w pt. to return promptly to ED with worsening or new symptoms.- Pt. verbalizes' understanding and agreement with proposed treatment plan.proposed treatment plan. DISCHARGE: At this time pt. is stable for d/c to home. Will provide printed patient care instructions, and any necessary prescriptions. Care plan and follow up instructions have been discussed with the patient prior to discharge. Other X-Ray Diagnostic Results Other X-Ray Diagnostic Results : X-Ray ordered: left knee 3 views # of Views/Limited Vs Complete: 3 View Indication: Pain EP Interpretation: Yes ANUP Xray: Interpretation reviewed, by supervising MD, and agrees with findings. Interpretation: no dislocation, no soft tissue swelling, no fractures Impression: No acute disease Electronically Signed by: Keyanna Inman PA-C Last Vital Signs Date Time Temp Pulse Resp B/P (MAP) Pulse Ox O2 Delivery O2 Flow Rate FiO2 09/06/18 19:43 98.2 87 24 140/79 95 Room Air Status: improved Disposition: HOME, SELF-CARE Condition: Stable Patient Instructions: Knee Sprain Additional Instructions: Take medications as directed. Follow up with an [facility] in 3-5 days, even if your symptoms have resolved. If symptoms persist MRI may be required at the discretion of your PCP or Ortho Specialist. --Please review list of primary care clinics, if you do not already have a primary care provider who can give you an Orthopedic Referral. Return sooner to ED if new symptoms occur, or current symptoms become worse. - Please note that this Emergency Department Report was dictated using [employer] intelligence technology software, occasionally this can lead to erroneous entry secondary to interpretation by the dictation equipment. Keyanna Inman Sep 06, 2018 20:18
[2018-09-06] MEDS ORDERED: NAPROXEN500 M1 ORAL (20:46)
[2018-09-06 20:49] VITALS: BP 136/76
--- NOTE | 2018-09-07 10:35 | Diagnostic Imaging Report ---
Indication: Left knee pain Technique: 3 views of the left knee Comparison: None Findings: No suprapatellar effusion. No acute fractures. No dislocations. There are medial and lateral osteophytes as well as patellofemoral osteophytes. There is mild narrowing of the medial joint space Impression: Degenerative changes as described. No acute bony trauma
== END 2018-09-06 20:57 | disposition home or self-care (01) ==
LOC: EMR 20:56
DX: S83.92XA Sprain of unspecified site of left knee, initial encounter (principal); S86.912A Strain of unspecified muscle(s) and tendon(s) at lower leg level, left leg, initial encounter; M72.2 Plantar fascial fibromatosis; X58.XXXA Exposure to other specified factors, initial encounter; Y92.9 Unspecified place or not applicable; E66.9 Obesity, unspecified; Z68.42 Body mass index [BMI] 45.0-49.9, adult
CPT/HCPCS: 99283

== ENCOUNTER → 2018-10-08 | Emergency (ER) | payer MEDICAID ==
[~2018-10-08] VITALS: Ht 172.7 cm; Wt 140.6 kg
[~2018-10-08] MED LIST changes: +DICYCLOMINE HCL10 MG PO; +NAPROXEN500 M1 ORAL; +ZOFRAN4 M3 ORAL
--- NOTE | 2018-10-08 00:29 | NUR ---
ED Nurse Note: Received report. Pt from home, ambulatory, AAOx4, c/o n/v/d, x24hrs, at home fever 101.1, but upon arrival 98.2. Pt O2 is 89% on RA, VSS. Mario assess and carryout ERMD's orders.
[2018-10-08 00:36] VITALS: BP 146/88
[2018-10-08 01:07] LABS: BASOPHILS % (AUTO) 1.3 % (0.0-2.0); EOSINOPHILS % (AUTO) 3.9 % (0.0-3.0); HEMATOCRIT 44.9 % (42.0-52.0); HEMOGLOBIN 13.4 G/DL (14.2-18.0); LYMPHOCYTES % (AUTO) 23.6 % (20.0-45.0); MEAN CORPUSCULAR VOLUME 75 FL (80-99); NEUTROPHILS % (AUTO) 64.1 % (45.0-75.0); PLATELET COUNT 256 K/UL (150-450); RED BLOOD COUNT 5.97 M/UL (4.70-6.10); RED CELL DISTRIBUTION WIDTH 17.8 % (11.6-14.8); WHITE BLOOD COUNT 7.4 K/UL (4.8-10.8)
[2018-10-08 01:19] LABS: ANION GAP 6 mmol/L (5-15); BLOOD UREA NITROGEN 11 mg/dL (7-18); CALCIUM 8.9 MG/DL (8.5-10.1); CARBON DIOXIDE 31 MMOL/L (21-32); CHLORIDE 98 MMOL/L (98-107); POTASSIUM 4.1 MMOL/L (3.5-5.1); SODIUM 135 MMOL/L (136-145)
[2018-10-08 01:26] LABS: ALANINE AMINOTRANSFERASE 29 U/L (12-78); ALBUMIN 3.3 G/DL (3.4-5.0); ALBUMIN/GLOBULIN RATIO 0.6 (1.0-2.7); ALKALINE PHOSPHATASE 69 U/L (46-116); ASPARTATE AMINO TRANSFERASE 20 U/L (15-37); BILIRUBIN,TOTAL 0.4 MG/DL (0.2-1.0)
[2018-10-08 02:17] VITALS: BP 122/67
--- NOTE | 2018-10-08 02:31 | NUR ---
ED Nurse Note: Pt cleared by health care Provider for discharge. DC instructions/prescription was given and explained to pt and verbalized understanding of teachings. All medical deviecs such as ID band removed. Pt is AAO x4, ambulatory and left with all personal belongings.
--- NOTE | 2018-10-08 21:54 | Emergency Room Report ---
History of Present Illness General Chief Complaint: Nausea, Vomiting, and Diarrhea Source: Patient Present Illness HPI Patient is a 37-year-old male presented after increased nausea and vomiting. Patient reports having some watery diarrhea. He denies any definite bad food exposure. 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 He reports having multiple episodes of nonbloody emesis. He denies any severe abdominal pain. He reports some generalized abdominal cramping. He denies any fever. Reports having some watery diarrhea. Allergies: Coded Allergies: No Known Allergies (Unverified , 06/14/18) Patient History Past Medical History: see triage record Reviewed Nursing Documentation: PMH: Agreed; PSxH: Agreed Nursing Documentation-PMH Past Medical History: No Stated History Review of Systems All Other Systems: negative except mentioned in HPI Physical Exam Vital Signs Date Time Temp Pulse Resp B/P (MAP) Pulse Ox O2 Delivery O2 Flow Rate FiO2 10/08/18 00:21 98.2 102 19 89 Room Air 10/08/18 00:36 146/88 General Appearance: no apparent distress, alert, GCS 15, obese ENT: normal pharynx Respiratory: lungs clear, no respiratory distress Gastrointestinal: normal inspection, non tender, hernia - umbilical defect without bowel present. Musculoskeletal: normal inspection, back normal Neurologic: normal inspection, alert, oriented x3, responsive Psychiatric: normal inspection Skin: normal inspection Medical Decision Making Diagnostic Impression: Primary Impression: Gastroenteritis Additional Impression: Nausea, vomiting, and diarrhea ER Course Patient presented for abdominal pain. Differential diagnoses included ischemic bowel, appendicitis, perforated viscus, abdominal aortic aneurysm, inferior myocardial infarction, viral gastroenteritis among others. Because of complexity of patient's case laboratory testing and imaging studies were ordered. Patient appears to have a viral gastroenteritis. He does not show any evidence of focal tenderness or surgical abdomen at this time. Laboratory testing was unremarkable. Patient was noted to have improvement in symptoms after medications IV antiemetics. Patient was given a note for work. He is advised not to return to work until symptoms improve. Patient was advised that he should return if he had any worsening of condition or other concerns. He was given medications for symptomatic treatment. Labs Test 10/08/18 00:53 10/08/18 01:00 White Blood Count 7.4 K/UL (4.8-10.8) Red Blood Count 5.97 M/UL (4.70-6.10) Hemoglobin 13.4 G/DL (14.2-18.0) Hematocrit 44.9 % (42.0-52.0) Mean Corpuscular Volume 75 FL (80-99) Mean Corpuscular Hemoglobin 22.5 PG (27.0-31.0) Mean Corpuscular Hemoglobin Concent 29.9 G/DL (32.0-36.0) Red Cell Distribution Width 17.8 % (11.6-14.8) Platelet Count 256 K/UL (150-450) Mean Platelet Volume 7.6 FL (6.5-10.1) Neutrophils (%) (Auto) 64.1 % (45.0-75.0) Lymphocytes (%) (Auto) 23.6 % (20.0-45.0) Monocytes (%) (Auto) 7.0 % (1.0-10.0) Eosinophils (%) (Auto) 3.9 % (0.0-3.0) Basophils (%) (Auto) 1.3 % (0.0-2.0) Sodium Level 135 MMOL/L (136-145) Potassium Level 4.1 MMOL/L (3.5-5.1) Chloride Level 98 MMOL/L (98-107) Carbon Dioxide Level 31 MMOL/L (21-32) Anion Gap 6 mmol/L (5-15) Blood Urea Nitrogen 11 mg/dL (7-18) Creatinine 1.0 MG/DL (0.55-1.30) Estimat Glomerular Filtration Rate > 60 mL/min (>60) Glucose Level 129 MG/DL (74-106) Calcium Level 8.9 MG/DL (8.5-10.1) Total Bilirubin 0.4 MG/DL (0.2-1.0) Aspartate Amino Transf (AST/SGOT) 20 U/L (15-37) Alanine Aminotransferase (ALT/SGPT) 29 U/L (12-78) Alkaline Phosphatase 69 U/L (46-116) Total Protein 8.6 G/DL (6.4-8.2) Albumin 3.3 G/DL (3.4-5.0) Globulin 5.3 g/dL Albumin/Globulin Ratio 0.6 (1.0-2.7) Lipase 83 U/L (73-393) Last Vital Signs Date Time Temp Pulse Resp B/P (MAP) Pulse Ox O2 Delivery O2 Flow Rate FiO2 10/08/18 02:17 88 25 122/67 95 Room Air 10/08/18 00:36 98.2 Status: improved Disposition: HOME, SELF-CARE Condition: Stable Scripts Dicyclomine Hcl* (DICYCLOMINE HCL*) 10 Mg Capsule 10 MG PO QID, #30 CAP Prov: Jorge Zhang MD 10/08/18 Ondansetron* (ZOFRAN*) 4 Mg Tablet 4 MG ORAL Q6H PRN for Nausea & Vomiting, #30 TAB Prov: Jorge Zhang MD 10/08/18 Departure Forms: Return to Work Return to Work in (Days): 2 Patient Instructions: Viral Gastroenteritis, Adult Jorge Zhang MD October 08, 2018 21:54
== END | disposition home or self-care (01) ==
LOC: EMR 01:00
DX: K52.9 Noninfective gastroenteritis and colitis, unspecified (principal)
CPT/HCPCS: 36415; 80053; 83690; 85025; 96361; 96374; 99284; J2405

== ENCOUNTER 2018-10-13 00:25 | Emergency (ER) | payer MEDICAID ==
[~2018-10-13] VITALS: Ht 172.7 cm; Wt 140.6 kg
[2018-10-13 00:35] VITALS: BP 119/72
--- NOTE | 2018-10-13 00:35 | NUR ---
ED Nurse Note: Pt arrived ambulatory into ED for complaint of Right ear ache. Pt states pain began last night. Pt has also been experiencing stomach flu that he states he came in for last week. Since then he still feels weak. Pain in ear rated as 7/10, radiating to jaw.
[2018-10-13] MEDS ORDERED: NKM (00:38)
[2018-10-13] MEDS ORDERED: AUGMENTIN 875-1 EAC1 ORAL (01:06)
--- NOTE | 2018-10-13 01:07 | Emergency Room Report ---
History of Present Illness General Chief Complaint: Earache Source: Patient Present Illness [facility] This is a 37-year-old male with no past medical history. He presents with chief complaint of right ear pain. Onset for last 2 days. 2 days prior he had a gastroenteritis with nausea vomiting and diarrhea. Also with a cough and congestion. Pain is 8 out of 10. Worse with coughing. Better with rest. Denies any other complaint per no drainage. Allergies: Coded Allergies: No Known Allergies (Unverified , 06/14/18) Patient History Past Medical History: none, see triage record, old chart reviewed Past Surgical History: none Pertinent Family History: none Social History: Denies: smoking Immunizations: other Reviewed Nursing Documentation: PMH: Agreed; PSxH: Agreed Nursing Documentation-PMH Past Medical History: No History, Except For Review of Systems Eye: Denies: eye pain, blurred vision ENT: Reports: ear pain; Denies: nose congestion, throat swelling Respiratory: Reports: cough; Denies: shortness of breath Cardiovascular: Denies: chest pain, palpitations Gastrointestinal: Denies: abdominal pain, diarrhea, nausea, vomiting Musculoskeletal: Denies: back pain, joint pain Skin: Denies: rash Neurological: Denies: headache, numbness Endocrine: Denies: increased thirst, increased urine Hematologic/Lymphatic: Denies: easy bruising All Other Systems: negative except mentioned in HPI Physical Exam Vital Signs Date Time Temp Pulse Resp B/P (MAP) Pulse Ox O2 Delivery O2 Flow Rate FiO2 10/13/18 00:34 99.0 85 18 90 Room Air vitals unremarkable. Repeat pulse ox 98% Sp02 EP Interpretation: reviewed, normal General Appearance: well appearing, no apparent distress, alert, obese Head: normocephalic, atraumatic Eyes: bilateral eye PERRL, bilateral eye EOMI ENT: hearing grossly normal, normal pharynx, other - Right TM with erythema Neck: full range of motion, supple, no meningismus Respiratory: chest non-tender, lungs clear, normal breath sounds Cardiovascular #1: regular rate, rhythm, no murmur Gastrointestinal: normal bowel sounds, non tender, no mass, no organomegaly, no bruit, non-distended Musculoskeletal: back normal, gait/station normal, normal range of motion Psychiatric: mood/affect normal Skin: warm/dry Medical Decision Making Diagnostic Impression: Primary Impression: Otitis media, right Qualified Codes: H66.91 - Otitis media, unspecified, right ear ER Course Patient with a viral illness with a secondary otitis media. No evidence of any mastoiditis, meningitis, sepsis to name a few. Last Vital Signs Date Time Temp Pulse Resp B/P (MAP) Pulse Ox O2 Delivery O2 Flow Rate FiO2 10/13/18 00:34 99.0 85 18 90 Room Air Status: unchanged Disposition: HOME, SELF-CARE Condition: Stable Scripts Amoxicillin/Potassium Clav 875-125* (AUGMENTIN 875-125 TABLET*) 1 Each Tablet 1 TAB ORAL TWICE A DAY, #14 TAB Prov: Victor M Arevalo MD 10/13/18 Referrals: [facility] (PCP) Patient Instructions: Otitis Media, Adult Additional Instructions: Follow-up with your DrToni in 3-5 days. Return if worse. Victor M Arevalo MD October 13, 2018 01:07
[2018-10-13 01:15] VITALS: BP 123/56
--- NOTE | 2018-10-13 01:15 | NUR ---
ED Nurse Note: Pt cleared by . Pt A/Ox4, ambulatory with steady gait. Showing no signs of acute distress. Discharge paperwork and prescriptions provided. Pt verbalized understanding of all instructions. All belongings taken with patient. ID band removed.
== END 2018-10-13 01:15 | disposition home or self-care (01) ==
LOC: EMR 00:44
DX: H66.91 Otitis media, unspecified, right ear (principal); K52.9 Noninfective gastroenteritis and colitis, unspecified
CPT/HCPCS: 99282

== ENCOUNTER 2018-10-24 23:48 | Emergency (ER) | payer MEDICAID ==
[~2018-10-24] VITALS: Ht 172.7 cm; Wt 140.6 kg
--- NOTE | 2018-10-25 00:08 | NUR ---
ED Nurse Note: Pt c/o L foot swelling and pain since yesterday. Pt is AO x 4times, VSS, on room air no distress. ERMD seen Pt at bedside.
[2018-10-25 00:09] VITALS: BP 124/72
[2018-10-25] MEDS ORDERED: Clindamycin 900mg 50 ML IVPB ONE (00:30)
[2018-10-25] MEDS ORDERED: CLINDAMYCIN HC300 MG ORAL (01:43)
--- NOTE | 2018-10-25 01:44 | Emergency Room Report ---
History of Present Illness General Chief Complaint: Edema Source: Patient Present Illness HPI Is a 37-year-old male with no past mental history. He presents with chief complaint of swelling and pain to his left foot. Onset for last 2-3 days. He noticed an injury to his third toe couple days ago. Since then has been getting worse and now with swelling to dorsum his foot tracking up to his leg. His pain is 7 out of 10. Worse with walking. Better with rest. No fever chills. no nausea or vomiting. Allergies: Coded Allergies: No Known Allergies (Unverified , 06/14/18) Patient History Past Medical History: see triage record, old chart reviewed Past Surgical History: none Pertinent Family History: none Social History: Denies: smoking Immunizations: other Reviewed Nursing Documentation: PMH: Agreed; PSxH: Agreed Review of Systems Eye: Denies: eye pain, blurred vision ENT: Denies: ear pain, nose congestion, throat swelling Respiratory: Denies: cough, shortness of breath Cardiovascular: Denies: chest pain, palpitations Gastrointestinal: Denies: abdominal pain, diarrhea, nausea, vomiting Musculoskeletal: Reports: joint pain; Denies: back pain Skin: Denies: rash Neurological: Denies: headache, numbness Endocrine: Denies: increased thirst, increased urine Hematologic/Lymphatic: Denies: easy bruising All Other Systems: negative except mentioned in HPI Physical Exam Vital Signs Date Time Temp Pulse Resp B/P (MAP) Pulse Ox O2 Delivery O2 Flow Rate FiO2 10/24/18 23:57 98.1 83 18 124/72 (89) 98 Room Air vitals normal Sp02 EP Interpretation: reviewed, normal General Appearance: well appearing, no apparent distress, alert, obese Head: normocephalic, atraumatic Eyes: bilateral eye PERRL, bilateral eye EOMI ENT: hearing grossly normal, normal pharynx Neck: full range of motion, supple, no meningismus Respiratory: chest non-tender, lungs clear, normal breath sounds Cardiovascular #1: regular rate, rhythm, no murmur Gastrointestinal: normal bowel sounds, non tender, no mass, no organomegaly, no bruit, non-distended Musculoskeletal: back normal, gait/station normal, normal range of motion, other - Left third toe: There is an area about 1 cm with whitish necrotic skin laterally. Tender to palpation. No crepitus. No foreign body. He has tenderness and nonpitting edema to the dorsum of the foot. Psychiatric: mood/affect normal Skin: warm/dry Procedures Incision and Drainage Incision and Drainage : Consent: Verbal Site: Left third toe Blade Size: 11 I & D Procedure: betadine prep, sterile drapes applied Wound Location: lower extremity Patient Tolerated: Well Complications: None Progress Using an 11 blade scalpel, I made an incision over the necrotic area. There was only scant amount of drainage. No foreign body. I debrided to base of the wound. Patient tolerated procedure without a problem. Medical Decision Making Diagnostic Impression: Primary Impression: Abscess ER Course Patient with an abscess to his left third toe. No deep infection. No crepitus. IV clindamycin given. We'll discharge home. Other X-Ray Diagnostic Results Other X-Ray Diagnostic Results : X-Ray ordered: X-rays left foot # of Views/Limited Vs Complete: 3 View Indication: Pain EP Interpretation: Yes Interpretation: no dislocation, no soft tissue swelling, no fractures Impression: No acute disease Electronically Signed by: Victor M Arevalo MD Last Vital Signs Date Time Temp Pulse Resp B/P (MAP) Pulse Ox O2 Delivery O2 Flow Rate FiO2 10/25/18 00:09 98.1 87 18 124/72 98 Room Air Status: improved Disposition: HOME, SELF-CARE Condition: Stable Scripts Clindamycin Hcl (CLINDAMYCIN HCL) 300 Mg Capsule 300 MG ORAL THREE TIMES A DAY, #21 CAP Prov: Victor M Arevalo MD 10/25/18 Referrals: NON PHYSICIAN (PCP) Additional Instructions: Keep wound clean. Elevate leg. Clean with hydroperoxide first and then apply antibiotic ointment. Follow-up in 2-3 days for recheck. Return if worse. Victor M Arevalo MD October 25, 2018 01:44
[2018-10-25 01:59] VITALS: BP 132/77
[2018-10-25 02:00] VITALS: BP 132/77
[2018-10-25] MEDS ORDERED: Bacitracin Oint UD TOPIC ONE (02:00)
--- NOTE | 2018-10-25 02:00 | NUR ---
ER DISCHARGE NOTE: Patient is cleared to be discharged per ERMD, pt is aox4, on room air, with stable vital signs. pt was given dc and prescription instructions, pt was able to verbalize understanding, pt id band and iv site removed without complications. pt is able to ambulate with steady gait. pt took all belongings.
--- NOTE | 2018-10-25 02:41 | Diagnostic Imaging Report ---
EXAM: XR Left Foot Complete, 3 Views CLINICAL HISTORY: PAIN TECHNIQUE: Frontal, lateral and oblique views of the left foot. COMPARISON: No relevant prior studies available. FINDINGS: Bones/joints: Fusion of the third, fourth and fifth middle and distal phalanges. Plantar heel spur. No acute fracture. No dislocation. Soft tissues: Soft tissue swelling. Consultation of the insertion of Achilles tendon. No radiopaque foreign body. IMPRESSION: Soft tissue swelling. No acute bony abnormality.
== END 2018-10-25 02:01 | disposition home or self-care (01) ==
LOC: EMR 10-25 01:15
DX: L02.612 Cutaneous abscess of left foot (principal)
CPT/HCPCS: 10060; 73630; 87070; 87205; 96365; 99284; S0077; Z7502

== ENCOUNTER 2018-11-09 22:01 | Emergency (ER) | payer MEDICAID ==
[~2018-11-09] VITALS: Ht 172.7 cm; Wt 140.6 kg
[~2018-11-09 22:01] MED LIST changes: +CLINDAMYCIN HC300 MG ORAL
--- NOTE | 2018-11-09 22:33 | NUR ---
ED Nurse Note: Patient walked into ED c/o left foot swelling for the past 2 days, states that he was seen here earlier and was advised to come back if swelling has come back. Pt is AO x 4 times, VSS, on room air no distress. BALJITD seen Pt at bedside.
[2018-11-09 22:34] VITALS: BP 134/80
[2018-11-09] MEDS ORDERED: IBUPROFEN600 MG ORAL (23:23)
[2018-11-09 23:32] VITALS: BP 130/78
[2018-11-09 23:33] VITALS: BP 130/78
--- NOTE | 2018-11-09 23:33 | NUR ---
ER DISCHARGE NOTE: Patient is cleared to be discharged per ERMD, pt is aox4, on room air, with stable vital signs. pt was given dc and prescription instructions, pt was able to verbalize understanding, pt id band removed without complications. pt is able to ambulate with steady gait. pt took all belongings.
== END 2018-11-09 23:33 | disposition home or self-care (01) ==
LOC: EMR 22:54
DX: R22.42 Localized swelling, mass and lump, left lower limb (principal)
CPT/HCPCS: 99282

== ENCOUNTER 2018-11-30 00:16 | Emergency (ER) | payer MEDICAID ==
[~2018-11-30] VITALS: Ht 172.7 cm; Wt 140.6 kg
[2018-11-30 00:25] VITALS: BP 104/70
--- NOTE | 2018-11-30 00:49 | Emergency Room Report ---
History of Present Illness General Chief Complaint: Pain Source: Patient Present Illness HPI This is a 37-year-old male with chief complaint of right foot pain. Onset occurred this afternoon. He jumped out of his truck in landed on his right foot. He complained of pain to the bottom of the foot. Pain is 8 out of 10. Worse with bearing weight. No other injury. No radiation. Did not pass out. Allergies: Coded Allergies: No Known Allergies (Unverified , 06/14/18) Patient History Past Medical History: see triage record, old chart reviewed Past Surgical History: none Pertinent Family History: none Social History: Denies: smoking Immunizations: other Reviewed Nursing Documentation: PMH: Agreed; PSxH: Agreed Nursing Documentation-PMH Past Medical History: No Stated History Review of Systems Eye: Denies: eye pain, blurred vision ENT: Denies: ear pain, nose congestion, throat swelling Respiratory: Denies: cough, shortness of breath Cardiovascular: Denies: chest pain, palpitations Gastrointestinal: Denies: abdominal pain, diarrhea, nausea, vomiting Musculoskeletal: Reports: joint pain; Denies: back pain Skin: Denies: rash Neurological: Denies: headache, numbness Endocrine: Denies: increased thirst, increased urine Hematologic/Lymphatic: Denies: easy bruising All Other Systems: negative except mentioned in HPI Physical Exam Vital Signs Date Time Temp Pulse Resp B/P (MAP) Pulse Ox O2 Delivery O2 Flow Rate FiO2 11/30/18 00:18 98.2 88 20 104/70 (81) 94 Room Air Vitals normal Sp02 EP Interpretation: reviewed, normal General Appearance: well appearing, no apparent distress, alert Head: normocephalic, atraumatic Eyes: bilateral eye PERRL, bilateral eye EOMI ENT: hearing grossly normal, normal pharynx Neck: full range of motion, supple, no meningismus Respiratory: chest non-tender, lungs clear, normal breath sounds Cardiovascular #1: regular rate, rhythm, no murmur Gastrointestinal: normal bowel sounds, non tender, no mass, no organomegaly, no bruit, non-distended Musculoskeletal: back normal, gait/station normal, normal range of motion, other - Tenderness over the arch of right foot. Psychiatric: mood/affect normal Medical Decision Making Diagnostic Impression: Primary Impression: Sprain of foot, right Qualified Codes: S93.601A - Unspecified sprain of right foot, initial encounter ER Course Patient with a right foot sprain. No fracture dislocation. Will discharge home. Last Vital Signs Date Time Temp Pulse Resp B/P (MAP) Pulse Ox O2 Delivery O2 Flow Rate FiO2 11/30/18 00:25 98.2 85 20 104/70 94 Room Air Status: improved Disposition: HOME, SELF-CARE Condition: Stable Scripts Ibuprofen* (MOTRIN*) 600 Mg Tablet 600 MG ORAL THREE TIMES A DAY, #30 TAB 0 Refills Prov: Victor M Arevalo MD 11/30/18 Referrals: [facility] (PCP) Additional Instructions: Follow-up with your doctor in 7 days. Return if worse Victor M Arevalo MD Nov 30, 2018 00:49
[2018-11-30] MEDS ORDERED: IBUPROFEN600 MG ORAL (01:21)
[2018-11-30 01:32] VITALS: BP 110/78
--- NOTE | 2018-11-30 12:24 | Diagnostic Imaging Report ---
Indication: Trauma and pain Comparison: None Findings: 3 views of the right foot were obtained. No acute fractures, malalignment, erosions or periostitis are identified. There is mild narrowing of the first MTP joint. Small plantar calcaneal spur noted. Calcification at the Achilles insertion noted nonspecific. Soft tissue swelling is present in the dorsum of the foot. Impression: No acute fracture identified. Soft tissue swelling noted.
== END 2018-11-30 01:33 | disposition home or self-care (01) ==
LOC: EMR 00:30
DX: S93.601A Unspecified sprain of right foot, initial encounter (principal); X58.XXXA Exposure to other specified factors, initial encounter; Y92.9 Unspecified place or not applicable
CPT/HCPCS: 99283

== ENCOUNTER 2019-01-03 21:20 | Emergency (ER) | payer MEDICAID ==
[~2019-01-03] VITALS: Ht 172.7 cm; Wt 140.6 kg
--- NOTE | 2019-01-03 21:35 | NUR ---
ED Nurse Note: Recieved pt from home, with c/o right posterior neck pain x 3 days, mild swelling and tenderness noted, denies ear pain, pt rates pain at 8/10, possibly ingrown hair noted, pt denies fevers or any other discomforts.
--- NOTE | 2019-01-03 21:39 | Emergency Room Report ---
History of Present Illness General Chief Complaint: Earache Source: Patient Present Illness HPI Is a 38-year-old male with no significant past medical history. He presents with chief complaint of right ear pain. Onset for last 2 days. He also noticed a lump to the back of his neck. He had an abscess there before. Pain is throbbing in nature. No fever chills but no nausea no vomiting. No runny nose. Denies any other complaint. Allergies: Coded Allergies: No Known Allergies (Unverified , 06/14/18) Patient History Past Medical History: see triage record, old chart reviewed Past Surgical History: none Pertinent Family History: none Social History: Denies: smoking Immunizations: other Reviewed Nursing Documentation: PMH: Agreed; PSxH: Agreed Review of Systems Eye: Denies: eye pain, blurred vision ENT: Reports: ear pain; Denies: nose congestion, throat swelling Respiratory: Denies: cough, shortness of breath Cardiovascular: Denies: chest pain, palpitations Gastrointestinal: Denies: abdominal pain, diarrhea, nausea, vomiting Musculoskeletal: Denies: back pain, joint pain Skin: Denies: rash Neurological: Denies: headache, numbness Endocrine: Denies: increased thirst, increased urine Hematologic/Lymphatic: Denies: easy bruising All Other Systems: negative except mentioned in HPI Physical Exam Vital Signs Date Time Temp Pulse Resp B/P (MAP) Pulse Ox O2 Delivery O2 Flow Rate FiO2 01/03/19 21:24 98.6 87 18 120/79 (93) 94 Room Air Vitals normal Sp02 EP Interpretation: reviewed, normal General Appearance: well appearing, no apparent distress, alert, obese Head: normocephalic, atraumatic Eyes: bilateral eye PERRL, bilateral eye EOMI ENT: hearing grossly normal, normal pharynx, other - TMs are normal. Neck: full range of motion, supple, no meningismus, other - In the back of his neck on the right side, indurated area of about 3 cm. When I push on it there is slight purulent discharge. Respiratory: chest non-tender, lungs clear, normal breath sounds Cardiovascular #1: regular rate, rhythm, no murmur Gastrointestinal: normal bowel sounds, non tender, no mass, no organomegaly, no bruit, non-distended Musculoskeletal: back normal, gait/station normal, normal range of motion Psychiatric: mood/affect normal Procedures Incision and Drainage Incision and Drainage : Consent: Verbal Site: Neck Blade Size: 11 Wound Location: neck Anesthesia: 1% Lidocaine Volume Anesthetic (ccs): 5 Patient Tolerated: Well Complications: None Progress Cleaned with Betadine. Local anesthetic with 1% lidocaine without epinephrine. I made a 2 cm incision. There was small amount of pus expressed. Wound clean. Medical Decision Making Diagnostic Impression: Primary Impression: Cutaneous abscess of neck ER Course Presents with a neck abscess. No evidence of deep infection. No ear infection. Will discharge home. Last Vital Signs Date Time Temp Pulse Resp B/P (MAP) Pulse Ox O2 Delivery O2 Flow Rate FiO2 01/03/19 21:24 98.6 87 18 120/79 (93) 94 Room Air Status: improved Disposition: HOME, SELF-CARE Condition: Stable Scripts Trimethoprim/Sulfamethoxazole 160/800* (BACTRIM DS TABLET*) 1 Each Tablet 1 TAB ORAL Q12H, #14 TAB 0 Refills Prov: Victor M Arevalo MD 01/03/19 Additional Instructions: Follow-up with your doctor in 3 to 5 days for recheck. Keep wound clean. Clean with hydroperoxide and apply antibiotic ointment. Return if worse. Victor M Arevalo MD Jan 03, 2019 21:39
[2019-01-03] MEDS ORDERED: BACTRIM DS TAB1 EAC1 ORAL (21:55)
[2019-01-03 22:31] VITALS: BP 120/79
== END 2019-01-03 22:00 | disposition home or self-care (01) ==
LOC: EMR 21:50
DX: L02.11 Cutaneous abscess of neck (principal)
CPT/HCPCS: 10060; 99283; Z7502

== ENCOUNTER 2019-02-17 21:37 | Emergency (ER) | payer MEDICAID ==
[~2019-02-17] VITALS: Ht 172.7 cm; Wt 140.6 kg
[2019-02-17] MEDS ORDERED: NKM (22:05)
--- NOTE | 2019-02-17 22:05 | NUR ---
ED Nurse Note: pt walked in to ED C/O N/V/D for the last 2 days. pt is only able to hold in fluids at tgis time. pt states he ate soup with meat ealier and vomitted after. pt is alert x4. VSS
[2019-02-17 22:09] VITALS: BP 128/73
--- NOTE | 2019-02-17 22:30 | NUR ---
ED Nurse Note: blood and urine sample sent down to lab
[2019-02-17 22:53] LABS: APPEARANCE,URINE CLEAR; BASOPHILS % (AUTO) 1.4 % (0.0-2.0); BILIRUBIN, URINE NEGATIVE (NEGATIVE); COLOR,URINE PALE YELLOW; EOSINOPHILS % (AUTO) 2.3 % (0.0-3.0); GLUCOSE, URINE (UA) NEGATIVE (NEGATIVE); HEMATOCRIT 46.4 % (42.0-52.0); HEMOGLOBIN 13.9 G/DL (14.2-18.0); KETONES,URINE NEGATIVE (NEGATIVE); LEUKOCYTE ESTERASE ,URINE NEGATIVE (NEGATIVE); MEAN CORPUSCULAR VOLUME 78 FL (80-99); NEUTROPHILS % (AUTO) 53.5 % (45.0-75.0); NITRITE,URINE NEGATIVE (NEGATIVE); PH,URINE 5 (4.5-8.0); PLATELET COUNT 366 K/UL (150-450); PROTEIN,URINE NEGATIVE (NEGATIVE); RED BLOOD COUNT 5.94 M/UL (4.70-6.10); UROBILINOGEN,URINE NORMAL MG/DL (0.0-1.0); WHITE BLOOD COUNT 9.3 K/UL (4.8-10.8)
--- NOTE | 2019-02-17 22:57 | Emergency Room Report ---
History of Present Illness General Chief Complaint: Nausea, Vomiting, and Diarrhea Source: Patient Present Illness HPI Disclaimer: Please note that this report is being documented using DRAGON technology. This can lead to erroneous entry secondary to incorrect interpretation by the dictating instrument. HPI: 38-year-old otherwise healthy male presents for evaluation of vomiting and diarrhea. Symptoms began 2 days ago. He is unable to eat or drink much without immediately throwing it up. Last emesis was proximately 4 PM. Nonbloody. Also notes profusely watery stools for the last 2 days. Denies hematochezia or melena. Denies dysuria hematuria. Denies abdominal pain. Fevers at home approximately 101-102 taken under the armpit. Responded well to Tylenol. Denies any headaches, sore throat, cough or chest pain. PMH: None PSH: None Allergies: None Social Hx: Marijuana use Allergies: Coded Allergies: No Known Allergies (Unverified , 06/14/18) Nursing Documentation-PMH Past Medical History: No History, Except For Review of Systems All Other Systems: negative except mentioned in HPI Physical Exam Vital Signs Date Time Temp Pulse Resp B/P (MAP) Pulse Ox O2 Delivery O2 Flow Rate FiO2 02/17/19 22:02 98.4 93 14 121/73 (89) 92 Room Air General: Awake and alert, no acute distress HEENT: NC/AT. EOMI. dry mixed membranes Cardiovascular: RRR. S1 and S2 normal. No murmur appreciated Resp: Normal work of breathing. No cough, wheezing or crackles appreciated Abdomen: Abdomen is soft, obese, nondistended. Nontender Skin: Intact. No abrasions, laceration or rash over the exposed skin MSK: Normal tone and bulk. Moving all extremities. No obvious deformity. Neuro: Awake and alert. Mentating appropriately. Medical Decision Making Diagnostic Impression: Primary Impression: Gastroenteritis Additional Impressions: Nausea, vomiting, and diarrhea Elevated lipase ER Course 38-year-old male presents for evaluation of vomiting and diarrhea of 2 days with fevers reported at home. Here he is afebrile, well-appearing, no acute distress and is at benign abdomen. Will give IV fluids, antiemetics, check labs to assess for level of dehydration. If labs are unremarkable and patient is symptomatically improved he may be discharged home to follow-up with PMD. Laboratory Tests Test 02/17/19 22:15 02/17/19 23:10 White Blood Count 9.3 K/UL (4.8-10.8) Red Blood Count 5.94 M/UL (4.70-6.10) Hemoglobin 13.9 G/DL (14.2-18.0) L Hematocrit 46.4 % (42.0-52.0) Mean Corpuscular Volume 78 FL (80-99) L Mean Corpuscular Hemoglobin 23.4 PG (27.0-31.0) L Mean Corpuscular Hemoglobin Concent 30.0 G/DL (32.0-36.0) L Red Cell Distribution Width 16.0 % (11.6-14.8) H Platelet Count 366 K/UL (150-450) Mean Platelet Volume 7.8 FL (6.5-10.1) Neutrophils (%) (Auto) 53.5 % (45.0-75.0) Lymphocytes (%) (Auto) 35.0 % (20.0-45.0) Monocytes (%) (Auto) 8.0 % (1.0-10.0) Eosinophils (%) (Auto) 2.3 % (0.0-3.0) Basophils (%) (Auto) 1.4 % (0.0-2.0) Urine Color Pale yellow Urine Appearance Clear Urine pH 5 (4.5-8.0) Urine Specific [place] 1.015 (1.005-1.035) Urine Protein Negative (NEGATIVE) Urine Glucose (UA) Negative (NEGATIVE) Urine Ketones Negative (NEGATIVE) Urine Blood Negative (NEGATIVE) Urine Nitrite Negative (NEGATIVE) Urine Bilirubin Negative (NEGATIVE) Urine Urobilinogen Normal MG/DL (0.0-1.0) Urine Leukocyte Esterase Negative (NEGATIVE) Sodium Level 137 MMOL/L (136-145) Potassium Level 4.0 MMOL/L (3.5-5.1) Chloride Level 101 MMOL/L (98-107) Carbon Dioxide Level 31 MMOL/L (21-32) Anion Gap 6 mmol/L (5-15) Blood Urea Nitrogen 13 mg/dL (7-18) Creatinine 1.3 MG/DL (0.55-1.30) Estimate Glomerular Filtration Rate > 60 mL/min (>60) Glucose Level 140 MG/DL (74-106) H Calcium Level 8.9 MG/DL (8.5-10.1) Total Bilirubin 0.3 MG/DL (0.2-1.0) Aspartate Amino Transferase (AST) 16 U/L (15-37) Alanine Aminotransferase (ALT) 23 U/L (12-78) Alkaline Phosphatase 67 U/L (46-116) Total Protein 7.8 G/DL (6.4-8.2) Albumin 3.2 G/DL (3.4-5.0) L Globulin 4.6 g/dL Albumin/Globulin Ratio 0.7 (1.0-2.7) L Lipase 660 U/L (73-393) H Reevaluation Time: 00:09 Last Vital Signs Date Time Temp Pulse Resp B/P (MAP) Pulse Ox O2 Delivery O2 Flow Rate FiO2 02/17/19 22:09 98.8 89 18 128/73 96 Room Air Reevaluation Impression No significant white count, no significant anemia, labs otherwise largely within normal limits. Electrolytes are within normal limits, renal function is normal, lipase is elevated at 660 with the patient has no abdominal pain has not vomited in the emergency department. This can be followed up as an outpatient with repeat labs. Urinalysis does not show signs of infection. The patient is able to eat and drink in the emergency department. Will discharge with Zofran for symptom [id number]. There is likely a viral gastroenteritis and the patient can follow-up with his PMD. We discussed reasons to return to the emergency department he understands and agrees with this treatment plan. Disposition: HOME, SELF-CARE Condition: Improved Scripts Ondansetron Odt* (ZOFRAN ODT*) 4 Mg Tab.rapdis 4 MG BC EVERY 6 HOURS PRN for Nausea & Vomiting, #20 TAB 0 Refills Prov: Sung Covington MD 02/18/19 Sung Covington MD Feb 17, 2019 22:57
[2019-02-17 23:29] LABS: ANION GAP 6 mmol/L (5-15); BLOOD UREA NITROGEN 13 mg/dL (7-18); CALCIUM 8.9 MG/DL (8.5-10.1); CARBON DIOXIDE 31 MMOL/L (21-32); CHLORIDE 101 MMOL/L (98-107); CREATININE 1.3 MG/DL (0.55-1.30); SODIUM 137 MMOL/L (136-145)
[2019-02-17 23:34] LABS: ALANINE AMINOTRANSFERASE 23 U/L (12-78); ALBUMIN 3.2 G/DL (3.4-5.0); ALBUMIN/GLOBULIN RATIO 0.7 (1.0-2.7); ALKALINE PHOSPHATASE 67 U/L (46-116); ASPARTATE AMINO TRANSFERASE 16 U/L (15-37); BILIRUBIN,TOTAL 0.3 MG/DL (0.2-1.0)
[2019-02-18] MEDS ORDERED: ONDANSETRON ODT4 MG BC (00:09)
[2019-02-18 00:14] VITALS: BP 120/74
== END 2019-02-18 00:14 | disposition home or self-care (01) ==
LOC: EMR 22:23
DX: K52.9 Noninfective gastroenteritis and colitis, unspecified (principal); F12.10 Cannabis abuse, uncomplicated; R74.8 Abnormal levels of other serum enzymes
CPT/HCPCS: 36415; 80053; 81003; 83690; 85025; 96361; 96374; 96375; J2405; S0028; Z7502; 99284

== ENCOUNTER 2019-06-11 21:27 | Emergency (ER) | payer MEDICAID ==
[~2019-06-11] VITALS: Ht 172.7 cm; Wt 154.2 kg
[~2019-06-11 21:27] MED LIST changes: +FUROSEMIDE20 M1 ORAL; +ONDANSETRON ODT4 MG BC
--- NOTE | 2019-06-11 21:44 | NUR ---
ED Nurse Note: pt walked into ED c/o R foot px. pt reports jumping out of his truck instead of using the step stool yestereday and heard a "popping" since then, it hurts to bear weight. he has been taking 2 tablets of aleve every 4 hours for the px which is currently a 11/08.
--- NOTE | 2019-06-11 21:56 | Emergency Room Report ---
History of Present Illness General Chief Complaint: Lower Extremity Injury Source: Patient Present Illness HPI Patient is a 38-year-old male who presents after increased right-sided foot pain after jumping out of his truck. He reports having increased pain to the base of the right great toe. He denies any pain to the actual toe however on the pad below there. Injury occurred several days ago. He denies other locations of pain at this time. Prior history of obesity. denies prior history of diabetes. He denies feeling a crack. He had been able to ambulate after the injury. Works as a truck dock material mover. Allergies: Coded Allergies: No Known Allergies (Unverified , 06/14/18) Patient History Reviewed Nursing Documentation: PMH: Agreed; PSxH: Agreed Nursing Documentation-PMH Hx Hypertension: Yes - resolved Review of Systems All Other Systems: negative except mentioned in HPI Physical Exam Vital Signs Date Time Temp Pulse Resp B/P (MAP) Pulse Ox O2 Delivery O2 Flow Rate FiO2 06/11/19 21:33 97.9 86 18 113/68 (83) 94 Room Air General Appearance: well appearing, no apparent distress, alert, GCS 15, obese , Chronically Ill Head: normocephalic, atraumatic ENT: hearing grossly normal, normal voice Neck: full range of motion, supple Respiratory: no respiratory distress, speaking full sentences Cardiovascular #1: normal inspection Musculoskeletal: other - swelling to plantar side of right foot toes. 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 Differential diagnosis include was not limited to fracture, dislocation, contusion, tendon rupture among others. Because of complexity of patient's case imaging studies were ordered. Patient was noted to have some soft tissue swelling to the base of the great toe. Toe itself appears normal. Patient reports taking Naprosyn for pain.X-ray imaging of the right foot 3 views interpreted by radiology showed normal bony alignment without an fracture patient appears to be stable for for outpatient management . Patient denies any significant pain and has been able to ambulate with his toe elevated. Patient was advised elevation of his foot. He is advised to return to work with light duty only. Patient is to return if worse. He is advised to follow-up podiatry. Last Vital Signs Date Time Temp Pulse Resp B/P (MAP) Pulse Ox O2 Delivery O2 Flow Rate FiO2 06/11/19 21:33 97.9 86 18 113/68 (83) 94 Room Air Status: improved Disposition: HOME, SELF-CARE Condition: Stable Jorge Zhang MD Jun 11, 2019 21:56
--- NOTE | 2019-06-11 22:43 | Diagnostic Imaging Report ---
EXAM: XR Right Foot Complete, 3 or More Views CLINICAL HISTORY: PAIN TECHNIQUE: Frontal, lateral and oblique views of the right foot. COMPARISON: 11/30/2018 FINDINGS: Bones/joints: Midfoot and forefoot soft tissue prominence. Soft tissues: Plantar and Achilles calcaneal sites. Otherwise unremarkable bones. No radiopaque foreign body. IMPRESSION: 1. No acute osseous abnormality. 2. Midfoot and forefoot soft tissue prominence. 3. If there is continued concern, consider additional imaging.
[2019-06-11 22:50] VITALS: BP 113/68
--- NOTE | 2019-06-11 22:50 | NUR ---
ER DISCHARGE NOTE: Patient is cleared to be discharged per ERMD, pt is aox4, on room air, with stable vital signs. pt was given dc instructions and copy of xray results. pt verbalized understanding of teachings, pt id band removed without complications. pt is able to ambulate with steady gait. pt took all belongings.
== END 2019-06-11 22:50 | disposition home or self-care (01) ==
LOC: EMR 22:10
DX: S93.601A Unspecified sprain of right foot, initial encounter (principal); X58.XXXA Exposure to other specified factors, initial encounter; Y93.89 Activity, other specified; Y92.812 Truck as the place of occurrence of the external cause
CPT/HCPCS: 73630; Z7502; 99283

== ENCOUNTER 2019-07-06 20:46 | Emergency (ER) | payer MEDICAID ==
[~2019-07-06] VITALS: Ht 172.7 cm; Wt 147.4 kg
[2019-07-06 21:10] VITALS: BP 122/87
--- NOTE | 2019-07-06 21:10 | NUR ---
ED Nurse Note: Pt walked into ED from home for c/o chills, n/v, cough and body weakness/aches since yesterday. Pt is aaox4, no cardiac or respiratory distress noted. Pt is ambulatory with steady gait, will continue to monitor.
--- NOTE | 2019-07-06 21:29 | Emergency Room Report ---
History of Present Illness General Chief Complaint: General Complaint Source: Patient Present Illness HPI Patient presents with 3 days of nausea, vomiting, diarrhea and fever with chills. He denies eating any strange foods or travel. His 2 sons were ill and are now better. He took Tylenol 4 hours before coming to the hospital. He feels weak at this time and dehydrated. The diarrhea is been brown in color without any blood. He ate before coming in and kept it down. He denies any abdominal pain at this time. Because of the diarrhea he has been unable to work. No sore throat, chest pain, palpitations, dysuria, shortness of breath, joint pain, rashes, depression, anxiety, visual changes, dizziness, headache. 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: PMH: Agreed; PSxH: Agreed Nursing Documentation-PMH Past Medical History: No Stated History Hx Hypertension: Yes - resolved Physical Exam Vital Signs Date Time Temp Pulse Resp B/P (MAP) Pulse Ox O2 Delivery O2 Flow Rate FiO2 07/06/19 20:57 98.8 87 19 122/87 (99) 96 07/06/19 21:10 Room Air Sp02 EP Interpretation: reviewed, normal General Appearance: well appearing, alert, non-toxic, obese Eyes: bilateral eye PERRL, bilateral eye other - Hyperpigmented Neck: full range of motion, supple Cardiovascular #1: regular rate, rhythm, no edema Cardiovascular #2: 2+ radial (L) Gastrointestinal: normal bowel sounds, non tender, soft, overweight Genitourinary: no CVA tenderness Musculoskeletal: back normal, no calf tenderness, gait/station normal Neurologic: alert, oriented x3, grossly normal Psychiatric: mood/affect normal Skin: warm/dry Medical Decision Making Diagnostic Impression: Primary Impression: Viral gastroenteritis ER Course Patient presents with fever, nausea, vomiting and diarrhea. Symptoms are somewhat improving. He was exposed to his sons which suggest of infectious etiology. He is not toxic at this time. Differential includes food poisoning and gastroenteritis. The patient will receive IV hydration, Zofran and Tylenol. Laboratory unremarkable. Some suggestion of volume depletion. Improved after 500 ml. Wants to go home. Discussed assessment and treatment plan with patient. Patient stable for outpatient observation and treatment. Labs Test 07/06/19 21:30 07/06/19 22:40 White Blood Count 8.1 K/UL (4.8-10.8) Red Blood Count 6.27 M/UL (4.70-6.10) Hemoglobin 13.8 G/DL (14.2-18.0) Hematocrit 49.3 % (42.0-52.0) Mean Corpuscular Volume 79 FL (80-99) Mean Corpuscular Hemoglobin 22.0 PG (27.0-31.0) Mean Corpuscular Hemoglobin Concent 28.0 G/DL (32.0-36.0) Red Cell Distribution Width 18.2 % (11.6-14.8) Platelet Count 315 K/UL (150-450) Mean Platelet Volume 8.5 FL (6.5-10.1) Neutrophils (%) (Auto) 49.4 % (45.0-75.0) Lymphocytes (%) (Auto) 36.9 % (20.0-45.0) Monocytes (%) (Auto) 9.6 % (1.0-10.0) Eosinophils (%) (Auto) 2.1 % (0.0-3.0) Basophils (%) (Auto) 2.0 % (0.0-2.0) Sodium Level 139 MMOL/L (136-145) Potassium Level 4.7 MMOL/L (3.5-5.1) Chloride Level 101 MMOL/L (98-107) Carbon Dioxide Level 32 MMOL/L (21-32) Anion Gap 6 mmol/L (5-15) Blood Urea Nitrogen 11 mg/dL (7-18) Creatinine 1.0 MG/DL (0.55-1.30) Estimat Glomerular Filtration Rate > 60 mL/min (>60) Glucose Level 107 MG/DL (74-106) Calcium Level 9.2 MG/DL (8.5-10.1) Total Bilirubin 0.3 MG/DL (0.2-1.0) Aspartate Amino Transf (AST/SGOT) 18 U/L (15-37) Alanine Aminotransferase (ALT/SGPT) 23 U/L (12-78) Alkaline Phosphatase 70 U/L (46-116) Total Protein 8.5 G/DL (6.4-8.2) Albumin 3.2 G/DL (3.4-5.0) Globulin 5.3 g/dL Albumin/Globulin Ratio 0.6 (1.0-2.7) Lipase 82 U/L (73-393) Urine Color Pale yellow Urine Appearance Clear Urine pH 8 (4.5-8.0) Urine Specific [place] 1.010 (1.005-1.035) Urine Protein Negative (NEGATIVE) Urine Glucose (UA) Negative (NEGATIVE) Urine Ketones Negative (NEGATIVE) Urine Blood Negative (NEGATIVE) Urine Nitrite Negative (NEGATIVE) Urine Bilirubin Negative (NEGATIVE) Urine Urobilinogen Normal MG/DL (0.0-1.0) Urine Leukocyte Esterase Negative (NEGATIVE) Last Vital Signs Date Time Temp Pulse Resp B/P (MAP) Pulse Ox O2 Delivery O2 Flow Rate FiO2 07/06/19 23:05 98.8 77 18 125/75 96 Room Air Status: improved Disposition: HOME, SELF-CARE Condition: Improved Scripts Ondansetron Odt* (ZOFRAN ODT*) 4 Mg Tab.rapdis 4 MG BC EVERY 8 HOURS, #4 TAB 1 Refill Prov: Ivan Alex MD 07/06/19 Referrals: [facility] (PCP) Ivan Alex MD Jul 06, 2019 21:29
[2019-07-06] MEDS ORDERED: ONDANSETRON ODT4 MG BC ×2 (21:32)
[2019-07-06 21:47] LABS: EOSINOPHILS % (AUTO) 2.1 % (0.0-3.0); HEMATOCRIT 49.3 % (42.0-52.0); HEMOGLOBIN 13.8 G/DL (14.2-18.0); LYMPHOCYTES % (AUTO) 36.9 % (20.0-45.0); MEAN CORPUSCULAR VOLUME 79 FL (80-99); MONOCYTES % (AUTO) 9.6 % (1.0-10.0); NEUTROPHILS % (AUTO) 49.4 % (45.0-75.0); PLATELET COUNT 315 K/UL (150-450); RED BLOOD COUNT 6.27 M/UL (4.70-6.10); RED CELL DISTRIBUTION WIDTH 18.2 % (11.6-14.8); WHITE BLOOD COUNT 8.1 K/UL (4.8-10.8)
[2019-07-06 22:05] LABS: ANION GAP 6 mmol/L (5-15); BLOOD UREA NITROGEN 11 mg/dL (7-18); CALCIUM 9.2 MG/DL (8.5-10.1); CARBON DIOXIDE 32 MMOL/L (21-32); CHLORIDE 101 MMOL/L (98-107); POTASSIUM 4.7 MMOL/L (3.5-5.1); SODIUM 139 MMOL/L (136-145)
[2019-07-06 22:10] LABS: ALANINE AMINOTRANSFERASE 23 U/L (12-78); ALBUMIN 3.2 G/DL (3.4-5.0); ALBUMIN/GLOBULIN RATIO 0.6 (1.0-2.7); ALKALINE PHOSPHATASE 70 U/L (46-116); ASPARTATE AMINO TRANSFERASE 18 U/L (15-37); BILIRUBIN,TOTAL 0.3 MG/DL (0.2-1.0)
[2019-07-06 23:03] LABS: APPEARANCE,URINE CLEAR; BILIRUBIN, URINE NEGATIVE (NEGATIVE); COLOR,URINE PALE YELLOW; GLUCOSE, URINE (UA) NEGATIVE (NEGATIVE); KETONES,URINE NEGATIVE (NEGATIVE); LEUKOCYTE ESTERASE ,URINE NEGATIVE (NEGATIVE); NITRITE,URINE NEGATIVE (NEGATIVE); PH,URINE 8 (4.5-8.0); PROTEIN,URINE NEGATIVE (NEGATIVE); UROBILINOGEN,URINE NORMAL MG/DL (0.0-1.0)
[2019-07-06 23:05] VITALS: BP 125/75
== END 2019-07-06 23:05 | disposition home or self-care (01) ==
LOC: EMR 21:21
DX: A08.4 Viral intestinal infection, unspecified (principal)
CPT/HCPCS: 36415; 80053; 81003; 83690; 85025; 96361; 96374; J2405; J7030; Z7502; 99284

== ENCOUNTER 2019-07-13 22:11 | Emergency (ER) | payer MEDICAID ==
[~2019-07-13] VITALS: Ht 172.7 cm; Wt 147.4 kg
[2019-07-13 22:25] VITALS: BP 107/72
--- NOTE | 2019-07-13 22:25 | NUR ---
ED Nurse Note: Pt walked into ED from home for c/o flu like symptoms. Pt states he has been having n/v/d since yesterday and reports chills, GOLDMAN, body aches and swollen lip. Pt denies any injury to lip. Pt is aaox4, no cardiac or respiratory distress noted. Pt is ambulatory with steady gait.
[2019-07-13] MEDS ORDERED: ZOFRAN4 MG ORAL (22:31)
[2019-07-13] MEDS ORDERED: IBUPROFEN600 MG ORAL (22:31)
--- NOTE | 2019-07-13 22:31 | Emergency Room Report ---
History of Present Illness General Chief Complaint: Flu Like Symptoms Source: Patient Present Illness HPI This is a 38-year-old male with no past medical history. He presents with chief complaint of flulike symptoms. Onset yesterday. He has fever chills but he has nausea vomiting that resolved already. Also with congestion and runny nose. [id number] medication helped. Coughing is nonproductive nature. He missed work for 2 days. Allergies: Coded Allergies: No Known Allergies (Unverified , 06/14/18) Patient History Past Medical History: see triage record, old chart reviewed Past Surgical History: none Pertinent Family History: none Social History: Reports: smoking Immunizations: other Reviewed Nursing Documentation: PMH: Agreed; PSxH: Agreed Nursing Documentation-PMH Past Medical History: No Stated History Hx Hypertension: Yes - resolved Review of Systems Constitutional: Reports: chills, fever Eye: Denies: eye pain, blurred vision ENT: Reports: nose congestion, throat pain; Denies: ear pain, throat swelling Respiratory: Reports: cough; Denies: shortness of breath Cardiovascular: Denies: chest pain, palpitations Gastrointestinal: Denies: abdominal pain, diarrhea, nausea, vomiting Musculoskeletal: Denies: back pain, joint pain Skin: Denies: rash Neurological: Denies: headache, numbness Endocrine: Denies: increased thirst, increased urine Hematologic/Lymphatic: Denies: easy bruising All Other Systems: negative except mentioned in HPI Physical Exam Vital Signs Date Time Temp Pulse Resp B/P (MAP) Pulse Ox O2 Delivery O2 Flow Rate FiO2 07/13/19 22:15 98.1 77 19 107/72 (84) 91 Room Air Vitals normal. Repeat pulse ox 98% Sp02 EP Interpretation: reviewed, normal General Appearance: well appearing, no apparent distress, alert, obese Head: normocephalic, atraumatic Eyes: bilateral eye PERRL, bilateral eye EOMI ENT: hearing grossly normal, normal pharynx Neck: full range of motion, supple, no meningismus Respiratory: chest non-tender, lungs clear, normal breath sounds Cardiovascular #1: regular rate, rhythm, no murmur Gastrointestinal: normal bowel sounds, non tender, no mass, no organomegaly, no bruit, non-distended Musculoskeletal: back normal, normal range of motion, gait/station normal Psychiatric: mood/affect normal Medical Decision Making Diagnostic Impression: Primary Impression: Viral syndrome ER Course Patient with a viral illness. No evidence of pneumonia, meningitis, sepsis or other serious bacterial infection. Will treat symptomatically. Last Vital Signs Date Time Temp Pulse Resp B/P (MAP) Pulse Ox O2 Delivery O2 Flow Rate FiO2 07/13/19 22:15 98.1 77 19 107/72 (84) 91 Room Air Status: unchanged Disposition: HOME, SELF-CARE Condition: Stable Scripts Ibuprofen* (MOTRIN*) 600 Mg Tablet 600 MG ORAL THREE TIMES A DAY, #30 TAB 0 Refills Prov: Victor M Arevalo MD 07/13/19 Ondansetron (Zofran) 4 Mg Tablet 4 MG ORAL Q6H PRN for Nausea & Vomiting, #10 TAB 0 Refills Prov: Victor M Arevalo MD 07/13/19 Additional Instructions: Follow-up with your doctor in 7 days. Return if symptoms worsen. Victor M Arevalo MD Jul 13, 2019 22:31
[2019-07-13 23:00] VITALS: BP 110/84
--- NOTE | 2019-07-13 23:00 | NUR ---
ER DISCHARGE NOTE: Patient is cleared to be discharged per ERMD, pt is aox4, on room air, with stable vital signs. pt was given dc and prescription instructions, pt was able to verbalize understanding, pt id band removed. pt is able to ambulate with steady gait. pt took all belongings.
== END 2019-07-13 23:15 | disposition home or self-care (01) ==
LOC: EMR 23:04
DX: B34.9 Viral infection, unspecified (principal); F17.200 Nicotine dependence, unspecified, uncomplicated
CPT/HCPCS: 99282

== ENCOUNTER 2019-08-08 21:37 | Emergency (ER) | payer MEDICAID ==
[~2019-08-08] VITALS: Ht 172.7 cm; Wt 147.4 kg
[2019-08-08 22:00] VITALS: BP 122/79
--- NOTE | 2019-08-08 22:00 | NUR ---
ED Nurse Note: Pt walked into ED for c/o cyst on R side of neck. Pt was seen here recently for same complaint. Hard cyst noted on R side of neck. Pt is aaox4, no acute distress noted.
[2019-08-08] MEDS ORDERED: BACTRIM DS TAB1 EAC1 ORAL (23:10)
[2019-08-08] MEDS ORDERED: IBUPROFEN600 MG ORAL (23:10)
--- NOTE | 2019-08-08 23:11 | Emergency Room Report ---
History of Present Illness General Chief Complaint: Skin Rash/Abscess Source: Patient Present Illness HPI Is a 38-year-old male with no past medical history. He presents with an abscess to his neck. This is a recurrent issue. I saw him before for the same thing. He said is been there for couple days now. Started draining today. Better with movement today. Pain is 8 out of 10. No nausea no vomiting. No fever chills but denies any other complaint. Allergies: Coded Allergies: No Known Allergies (Unverified , 06/14/18) Patient History Past Medical History: see triage record, old chart reviewed Past Surgical History: none Pertinent Family History: none Social History: Denies: smoking Immunizations: other Reviewed Nursing Documentation: PMH: Agreed; PSxH: Agreed Nursing Documentation-PMH Past Medical History: No History, Except For Hx Hypertension: Yes - resolved Review of Systems Eye: Denies: eye pain, blurred vision ENT: Denies: ear pain, nose congestion, throat swelling Respiratory: Denies: cough, shortness of breath Cardiovascular: Denies: chest pain, palpitations Gastrointestinal: Denies: abdominal pain, diarrhea, nausea, vomiting Musculoskeletal: Denies: back pain, joint pain Skin: Denies: rash Neurological: Denies: headache, numbness Endocrine: Denies: increased thirst, increased urine Hematologic/Lymphatic: Denies: easy bruising All Other Systems: negative except mentioned in HPI Physical Exam Vital Signs Date Time Temp Pulse Resp B/P (MAP) Pulse Ox O2 Delivery O2 Flow Rate FiO2 08/08/19 21:43 98.1 85 14 122/79 (93) 96 Room Air Vitals normal Sp02 EP Interpretation: reviewed, normal General Appearance: well appearing, no apparent distress, alert, obese Head: normocephalic, atraumatic Eyes: bilateral eye PERRL, bilateral eye EOMI ENT: hearing grossly normal, normal pharynx Neck: full range of motion, supple, no meningismus, other - Right side the nape of the neck, there is an indurated area of about 2 to 3 cm. There is small amount of drainage. No redness. Mildly tender to palpation. Respiratory: chest non-tender, lungs clear, normal breath sounds Cardiovascular #1: regular rate, rhythm, no murmur Gastrointestinal: normal bowel sounds, non tender, no mass, no organomegaly, no bruit, non-distended Musculoskeletal: back normal, normal range of motion, gait/station normal Psychiatric: mood/affect normal Procedures Incision and Drainage Incision and Drainage : Consent: Verbal Site: Neck Blade Size: 11 I & D Procedure: betadine prep Wound Location: neck Wound Explored: clean Anesthesia: 1% Lidocaine Volume Anesthetic (ccs): 3 Patient Tolerated: Well Complications: None Medical Decision Making Diagnostic Impression: Primary Impression: Abscess ER Course Abscess to the neck area. No evidence of necrotizing fasciitis or deep infection. I&D and will discharge home with antibiotics. Last Vital Signs Date Time Temp Pulse Resp B/P (MAP) Pulse Ox O2 Delivery O2 Flow Rate FiO2 08/08/19 21:43 98.1 85 14 122/79 (93) 96 Room Air Status: improved Disposition: HOME, SELF-CARE Condition: Stable Scripts Ibuprofen* (MOTRIN*) 600 Mg Tablet 600 MG ORAL THREE TIMES A DAY, #30 TAB 0 Refills Prov: Victor M rAevalo MD 08/08/19 Trimethoprim/Sulfamethoxazole 160/800* (BACTRIM DS TABLET*) 1 Each Tablet 1 TAB ORAL Q12H, #14 TAB 0 Refills Prov: Victor M Arevalo MD 08/08/19 Patient Instructions: Abscess Additional Instructions: Follow-up in 2 to 3 days for recheck. Either come back here or see your doctor. Return if symptoms worsen. Victor M Arevalo MD Aug 08, 2019 23:11
[2019-08-08 23:15] VITALS: BP 122/79
[2019-08-08] MEDS ORDERED: Bactrim-DS 1 tab ORAL ONE (23:15)
== END 2019-08-08 23:15 | disposition home or self-care (01) ==
LOC: EMR 21:57
DX: L02.11 Cutaneous abscess of neck (principal)
CPT/HCPCS: 10060; Z7502; 99283

== ENCOUNTER 2019-08-11 21:56 | Emergency (ER) | payer MEDICAID ==
[~2019-08-11] VITALS: Ht 172.7 cm; Wt 147.4 kg
--- NOTE | 2019-08-11 22:08 | NUR ---
ED Nurse Note: Walk-in patient presents with complaints of right neck abscess, post I&D. Patient suspects extended infection and reports pain at right neck and feeling hot at home althought currently is afebrile. Patient has been taking tylenol. Will continue to monitor. Patient is in monitored bed 1.
[2019-08-11 22:38] VITALS: BP 103/69
[2019-08-11] MEDS ORDERED: Omnipaque-300 100ml vial INJ ONE (22:45)
[2019-08-11 23:04] LABS: BASOPHILS % (AUTO) 0.9 % (0.0-2.0); EOSINOPHILS % (AUTO) 1.2 % (0.0-3.0); HEMOGLOBIN 12.9 G/DL (14.2-18.0); LYMPHOCYTES % (AUTO) 36.2 % (20.0-45.0); MEAN CORPUSCULAR VOLUME 74 FL (80-99); MONOCYTES % (AUTO) 5.6 % (1.0-10.0); NEUTROPHILS % (AUTO) 56.1 % (45.0-75.0); PLATELET COUNT 334 K/UL (150-450); RED BLOOD COUNT 5.84 M/UL (4.70-6.10); RED CELL DISTRIBUTION WIDTH 19.3 % (11.6-14.8); WHITE BLOOD COUNT 9.2 K/UL (4.8-10.8)
[2019-08-11 23:16] LABS: ANION GAP 6 mmol/L (5-15); BLOOD UREA NITROGEN 15 mg/dL (7-18); CALCIUM 8.8 MG/DL (8.5-10.1); CARBON DIOXIDE 32 MMOL/L (21-32); CHLORIDE 101 MMOL/L (98-107); CREATININE 1.1 MG/DL (0.55-1.30); SODIUM 139 MMOL/L (136-145)
--- NOTE | 2019-08-11 23:36 | Emergency Room Report ---
History of Present Illness General Chief Complaint: Neck Pain Source: Patient Present Illness HPI Disclaimer: Please note that this report is being documented using DRAGON technology. This can lead to erroneous entry secondary to incorrect interpretation by the dictating instrument. HPI: 38-year-old male presents for evaluation of a abscess on the right side of the neck. He was seen in the emergency department 3 days ago had incision and drainage of a superficial abscess. He was started on Bactrim which she has been taking. Reports warmth, pain and induration in that area. Feels like he might be spreading. He felt feverish yesterday and recorded a temperature of 101 at home taken orally. He has been taking ibuprofen for pain. Denies any immobility in the cervical spine. Denies any headaches, nausea, vomiting. He reported some diarrhea. COVID-19 risk:Travel to affect: No Allergies: Coded Allergies: No Known Allergies (Unverified , 06/14/18) Nursing Documentation-PMH Hx Hypertension: Yes - resolved Review of Systems All Other Systems: negative except mentioned in HPI Physical Exam Vital Signs Date Time Temp Pulse Resp B/P (MAP) Pulse Ox O2 Delivery O2 Flow Rate FiO2 08/11/19 22:08 98.2 90 18 103/69 (80) 94 Room Air General: Awake and alert, no acute distress HEENT: NC/AT. EOMI. indurated and mildly erythematous and warm area of skin over the right posterior aspect of the neck. No purulent drainage, no fluctuance. Resp: Normal work of breathing Skin: 3 x 3 cm area of indurated and mildly erythematous and warm area of skin over the right posterior aspect of the neck. No purulent drainage, no fluctuance. MSK: Normal tone and bulk. Moving all extremities. No obvious deformity. Neuro: Awake and alert. Mentating appropriately Procedures Ultrasound Progress Bedside soft tissue evaluation of the right side of the neck. Findings of cobblestoning suggestive of cellulitis. No large pocket available for incision and drainage. Patient tolerated the procedure well. No complications. Performed by me, Dr. Sung Covington Medical Decision Making Diagnostic Impression: Primary Impression: Cellulitis ER Course 38-year-old male presenting for evaluation 3 days after drainage of an abscess. Complaining of worsening pain, growing area of induration and reported fever despite taking antibiotics. He is afebrile at this time and only reported fever once 2 days ago. He has been taking Bactrim. Concern for possible deep space infection. Will obtain a CT scan with IV contrast and draw screening labs. He is nonseptic appearing, no other complaints reported. Laboratory Tests Test 08/11/19 22:54 White Blood Count 9.2 K/UL (4.8-10.8) Red Blood Count 5.84 M/UL (4.70-6.10) Hemoglobin 12.9 G/DL (14.2-18.0) L Hematocrit 43.0 % (42.0-52.0) Mean Corpuscular Volume 74 FL (80-99) L Mean Corpuscular Hemoglobin 22.1 PG (27.0-31.0) L Mean Corpuscular Hemoglobin Concent 30.0 G/DL (32.0-36.0) L Red Cell Distribution Width 19.3 % (11.6-14.8) H Platelet Count 334 K/UL (150-450) Mean Platelet Volume 8.5 FL (6.5-10.1) Neutrophils (%) (Auto) 56.1 % (45.0-75.0) Lymphocytes (%) (Auto) 36.2 % (20.0-45.0) Monocytes (%) (Auto) 5.6 % (1.0-10.0) Eosinophils (%) (Auto) 1.2 % (0.0-3.0) Basophils (%) (Auto) 0.9 % (0.0-2.0) Sodium Level 139 MMOL/L (136-145) Potassium Level 4.0 MMOL/L (3.5-5.1) Chloride Level 101 MMOL/L (98-107) Carbon Dioxide Level 32 MMOL/L (21-32) Anion Gap 6 mmol/L (5-15) Blood Urea Nitrogen 15 mg/dL (7-18) Creatinine 1.1 MG/DL (0.55-1.30) Estimate Glomerular Filtration Rate > 60 mL/min (>60) Glucose Level 131 MG/DL (74-106) H Calcium Level 8.8 MG/DL (8.5-10.1) Reevaluation Time: 02:23 Last Vital Signs Date Time Temp Pulse Resp B/P (MAP) Pulse Ox O2 Delivery O2 Flow Rate FiO2 08/11/19 22:38 98.2 82 18 103/69 94 Room Air Reevaluation Impression Labs within normal limits. White count, renal function electrolytes within normal limits. Patient remains afebrile. Attempted to perform a CT multiple times however given the pain she is large care and she could not fit in the scanner. Attempted perform an x-ray however this was inconclusive. A bedside ultrasound was performed showing some cobblestoning consistent with cellulitis but no recurrence of a large abscess that would be amenable to incision and drainage. The patient is afebrile and will be continued on antibiotics. He is reassured. We will keep a close eye on this infection and return with new or worsening symptoms. Disposition: HOME, SELF-CARE Condition: Stable Sung Covington MD Aug 11, 2019 23:36
--- NOTE | 2019-08-11 23:37 | NUR ---
ED Nurse Note: Labs clear, patient going down for CT of the neck.
--- NOTE | 2019-08-11 23:57 | NUR ---
ED Nurse Note: Patient returned from unsuccessful CT. network control technician to consult JOE
--- NOTE | 2019-08-12 00:57 | NUR ---
ED Nurse Note: Patient went down to try CT again.
--- NOTE | 2019-08-12 01:58 | NUR ---
ED Nurse Note: Patient returned with perinatal tech.
--- NOTE | 2019-08-12 02:11 | NUR ---
ED Nurse Note: Ultrasound machine at bedside for ERMD for bedside ultrasound prior to decision for discharge.
--- NOTE | 2019-08-12 02:18 | NUR ---
ED Nurse Note: ERMD at bedside.
[2019-08-12 02:28] VITALS: BP 103/69
--- NOTE | 2019-08-12 02:28 | NUR ---
ED Nurse Note: ER DISCHARGE NOTE: Patient is cleared to be discharged per ERMD, pt is aox4, on room air, with stable vital signs. pt was given dc and prescription instructions, pt was able to verbalize understanding, pt id band and iv site removed without complications. pt is able to ambulate with steady gait. pt took all belongings.
--- NOTE | 2019-08-12 11:48 | Diagnostic Imaging Report ---
Indication: Neck Pain Findings: 3 views of the cervical spine were obtained. Several views obtained but the evaluation is limited below C4. The lower part of the cervical spine is not imaged. No obvious fracture identified. No obvious malalignment identified. IMPRESSION: Very limited evaluation. No obvious acute injury
== END 2019-08-12 02:28 | disposition home or self-care (01) ==
LOC: EMR 22:27
DX: L03.221 Cellulitis of neck (principal); I10 Essential (primary) hypertension
CPT/HCPCS: 36415; 72052; 80048; 85025; Z7502; 99284

== ENCOUNTER 2019-09-21 20:08 | Emergency (ER) | payer MEDICAID ==
[~2019-09-21] VITALS: Ht 172.7 cm; Wt 138.3 kg
--- NOTE | 2019-09-21 20:19 | NUR ---
ED Nurse Note: pt presents to ED c/o L foot swelling and pain x 2 days. pt is unsure if he was bitten but there is dried blood between the great toe and second toe, L foot appears to be more swollen than the R foot with a rash around the ankle. pt reports soaking his foot in water and rubbing vaseline on it without relief of symptoms. pain is exacerbated by movement and palpation
[2019-09-21] MEDS ORDERED: BACITRACIN ZIN1 EACH TOPIC (20:36)
[2019-09-21] MEDS ORDERED: BACTRIM DS TAB1 EAC1 ORAL (20:36)
[2019-09-21] MEDS ORDERED: CEPHALEXIN500 MG ORAL (20:36)
[2019-09-21 20:45] VITALS: BP 118/61
[2019-09-21] MEDS ORDERED: Bacitracin Oint UD TOPIC ONE (20:45)
[2019-09-21] MEDS ORDERED: Cephalexin 500mg cap ORAL ONE (20:45)
[2019-09-21] MEDS ORDERED: Tetanus/Diptheria/Pertussis IM ONE (20:45)
[2019-09-21] MEDS ORDERED: Bactrim-DS 1 tab ORAL ONE (20:45)
--- NOTE | 2019-09-21 22:51 | Emergency Room Report ---
History of Present Illness General Chief Complaint: Lower Extremity Injury Source: Patient Present Illness HPI Patient is a 38-year-old male who presents after increased discomfort to his foot. Patient had recent injury. Reports having increased discomfort to the left foot. Prior history of obesity. Denies any history of recent fever. Previous history of abscess in the past. Patient is normally ambulatory. Has been able to ambulate without assistance. Allergies: Coded Allergies: No Known Allergies (Unverified , 06/14/18) COVID-19 Screening Contact w/high risk pt: No Recent Travel to affected area: No Experienced COVID-19 symptoms?: No Patient History Past Medical History: see triage record Reviewed Nursing Documentation: PMH: Agreed; PSxH: Agreed Nursing Documentation-PMH Past Medical History: No History, Except For Hx Hypertension: Yes - resolved Review of Systems All Other Systems: negative except mentioned in HPI Physical Exam Vital Signs Date Time Temp Pulse Resp B/P (MAP) Pulse Ox O2 Delivery O2 Flow Rate FiO2 09/21/19 20:10 99.0 100 22 118/61 (80) 87 Room Air General Appearance: well appearing, no apparent distress, alert, GCS 15, obese , Chronically Ill Head: normocephalic, atraumatic ENT: hearing grossly normal, normal voice Neck: full range of motion, supple Respiratory: no respiratory distress, speaking full sentences Gastrointestinal: normal inspection Musculoskeletal: no calf tenderness, other - Left foot with small abrasion to the webspace between the great toe and second toe Neurologic: oriented x3, normal gait Psychiatric: mood/affect normal Skin: no rash Medical Decision Making Diagnostic Impression: Primary Impression: Puncture wound of left foot Additional Impression: Cellulitis ER Course Patient presented for skin lesion. Differential diagnosis include was not limited to cellulitis, infected laceration, ulcer among others patient has a benign exam and does not appear to require any imaging or laboratory testing at this time. Patient appears to be stable for outpatient management. He was given prescription for antibiotics as well as topical ointment. Tetanus was updated. He was advised to return if any worsening of condition or other concerns. Last Vital Signs Date Time Temp Pulse Resp B/P (MAP) Pulse Ox O2 Delivery O2 Flow Rate FiO2 09/21/19 20:10 99.0 100 22 118/61 (80) 87 Room Air Status: improved Disposition: HOME, SELF-CARE Condition: Stable Scripts Bacitracin Zinc* (BACITRACIN ZINC*) 1 Each Packet 1 APPLIC TOPIC THREE TIMES A DAY, #30 PACKET Prov: Jorge Zhang MD 09/21/19 Trimethoprim/Sulfamethoxazole 160/800* (BACTRIM DS TABLET*) 1 Each Tablet 1 TAB ORAL Q12H, #14 TAB 0 Refills Prov: Jorge Zhang MD 09/21/19 Cephalexin* (KEFLEX*) 500 Mg Capsule 500 MG ORAL EVERY 6 HOURS, #28 CAP Prov: Jorge Zhang MD 09/21/19 Patient Instructions: Cellulitis Additional Instructions: Follow up with your doctor for recheck in 2 days. Return if worse. Jorge Zhang MD Sep 21, 2019 22:51
== END 2019-09-21 20:45 | disposition home or self-care (01) ==
LOC: EMR 20:17
DX: S91.332A Puncture wound without foreign body, left foot, initial encounter (principal); L03.116 Cellulitis of left lower limb; E66.9 Obesity, unspecified; I10 Essential (primary) hypertension; Z68.42 Body mass index [BMI] 45.0-49.9, adult; Z23 Encounter for immunization
CPT/HCPCS: 90471; 90715; Z7502; 99282

== ENCOUNTER 2020-05-10 23:05 | Emergency (ER) | payer MEDICAID ==
[~2020-05-10] VITALS: Ht 172.7 cm; Wt 145.1 kg
[~2020-05-10 23:05] MED LIST changes: +BACITRACIN ZIN1 EACH TOPIC
[2020-05-10 23:17] VITALS: BP 125/72
[2020-05-10] MEDS ORDERED: OMEPRAZOLE20 M2 ORAL (23:31)
[2020-05-10] MEDS ORDERED: AMOXICILLIN500 MG ORAL (23:31)
--- NOTE | 2020-05-10 23:39 | Emergency Room Report ---
History of Present Illness General Chief Complaint: Sore Throat Source: Patient Present Illness HPI Patient is a 39-year-old male presents for increased sore throat. Gradual onset of symptoms. Denies any fever. Reports having some slight change in his voice. Denies any pain with movement of his neck. No recent fever or cough. Reports having some prior history of reflux. States he smokes marijuana regularly. Denies any vomiting or diarrhea. Denies any change in sense of smell Allergies: Coded Allergies: No Known Allergies (Unverified , 06/14/18) COVID-19 Screening Contact w/high risk pt: No Recent Travel to affected area: No Experienced COVID-19 symptoms?: No COVID-19 Testing performed GENERAL DISTILLERY WORKER: No Patient History Past Medical History: see triage record Reviewed Nursing Documentation: PMH: Agreed; PSxH: Agreed Nursing Documentation-PMH Past Medical History: No History, Except For Hx Hypertension: Yes - resolved Review of Systems All Other Systems: negative except mentioned in HPI Physical Exam Vital Signs Date Time Temp Pulse Resp B/P (MAP) Pulse Ox O2 Delivery O2 Flow Rate FiO2 05/10/20 23:13 98.2 85 18 126/77 (93) 95 Room Air General Appearance: well appearing, no apparent distress, alert, GCS 15 Head: normocephalic, atraumatic ENT: hearing grossly normal, normal voice, pharyngeal erythema Neck: full range of motion, supple Respiratory: lungs clear, normal breath sounds, no respiratory distress, speaking full sentences Cardiovascular #1: normal inspection, no edema Gastrointestinal: normal inspection, soft Musculoskeletal: normal inspection, normal range of motion, no calf tenderness Neurologic: alert, motor strength/tone normal, distribution agent III-XII nml as tested, orien hank x3, normal gait Psychiatric: mood/affect normal Skin: no rash Medical Decision Making Diagnostic Impression: Primary Impression: Pharyngitis ER Course Patient presented for sore throat. Differential diagnosis include was not limited to pharyngitis, coronavirus infection, viral respiratory infection among others. Patient has a benign exam and does not appear to require any imaging or laboratory testing at this time. Patient was advised to have outpatient coronavirus testing performed. Does not have any evidence of uvular deviation. Patient was given prescription for acid blockers as well as for amoxicillin. He was advised to follow-up with his primary care physician for recheck. He is advised to return if worse. Patient was advised to self quarantine. This medical record is generated with [employer] assistant site manager software. There may be some assistant site manager discrepancies related to use of this software patient presented for cough. Was advised to return if began having fever increased difficulty breathing or other concerns. The patient is advised to follow up with primary care doctor for recheck. Patient is advised to return if any worsening condition or if any changes in status that are concerning. Last Vital Signs Date Time Temp Pulse Resp B/P (MAP) Pulse Ox O2 Delivery O2 Flow Rate FiO2 05/10/20 23:17 98.2 86 18 125/72 95 Room Air Status: improved Disposition: HOME, SELF-CARE Condition: Stable Scripts Omeprazole (OMEPRAZOLE) 20 Mg Capsule.dr 20 MG ORAL DAILY for Gerd, #30 CAP Prov: Jorge Zhang MD 05/10/20 Amoxicillin* (AMOXIL*) 500 Mg Capsule 500 MG ORAL THREE TIMES A DAY, #21 CAP Prov: Jorge Zhang MD 05/10/20 Referrals: NON PHYSICIAN (PCP) Patient Instructions: Tonsillitis Additional Instructions: Follow up with outpatient coronavirus testing. Return worse. Self quarantine. Jorge Zhang MD May 10, 2020 23:39
[2020-05-10 23:40] VITALS: BP 122/70
== END 2020-05-10 23:40 | disposition home or self-care (01) ==
LOC: EMR 23:22
DX: J02.9 Acute pharyngitis, unspecified (principal); F12.90 Cannabis use, unspecified, uncomplicated
CPT/HCPCS: 99282

== ENCOUNTER 2020-08-10 23:42 | Emergency (ER) | payer MEDICAID ==
[~2020-08-10] VITALS: Ht 172.7 cm; Wt 129.3 kg
[~2020-08-10 23:42] MED LIST changes: +OMEPRAZOLE20 M2 ORAL
[2020-08-11] MEDS ORDERED: BACTRIM DS TAB1 EAC1 ORAL (00:05)
[2020-08-11] MEDS ORDERED: TYLENOL EXTRA500 MG ORAL (00:05)
[2020-08-11] MEDS ORDERED: CEPHALEXIN500 MG ORAL (00:05)
--- NOTE | 2020-08-11 00:05 | Emergency Room Report ---
History of Present Illness General Chief Complaint: Skin Rash/Abscess Source: Patient Present Illness HPI Patient is a pleasant 39-year-old male with no stated PMHx c/o left back abscess x2 days. Tried to pop it at home and was successful, however noticed more drainage today so came to the ER. Tdap status is unknown. Denies fever, chills, midline back pain, weakness, GOLDMAN, neck pain, chest pain, shortness of breath, cough, nausea, vomiting, diarrhea, melena, hematochezia, dysuria, hematuria or any other symptoms. The patient's symptoms were gradual onset, severity was moderate, duration since 2 days. Quality: Aching Past medical history: Denies Past surgical history: Denies Smoking: Denies Alcohol use: Denies Drug use: Occasional marijuana Review of systems: CONST: No fevers or chills, No night sweats PULMONARY: No productive cough, No shortness of breath CARDIAC: No chest pain, No palpitations GI: No vomiting, No diarrhea , No melena_or_BRBPR : No dysuria, No hematuria, No discharge NEURO: No new_focal_weakness_or_numbness, No confusion, No vision changes 14 point Review of Systems is otherwise negative except per HPI Physical Exam: GENERAL: Awake_alert_ nontoxic, no acute distress Spo2 100% on RA -normal EYES: Extraocular muscles are intact. Conjunctivae clear. Lids without swelling ENT: External nose and ear normal_in_appearance. Oropharynx clear. Head_atraumatic, Moist_oral_mucosa NECK: No JVD. No meningismus. No thyromegaly. Supple. Trachea midline RESP: Normal respiratory effort. Symmetric rise. No stridor. Clear_ to_auscultation_No_rales_No_wheezes CARDIAC: Regular rate and regular rhytm. No_significant pedal edema. ABDOMEN: Soft. Nondistended. Nontender_No_rebound_or_guarding. MSK: Normal muscle tone, without rigidity. Extremities without asymmetric deformity or swelling. SKIN: Left superior back abscess 2x2 cm with positive purulent drainage. No involvement of midline axial spine. No overlying cellulitis or palpable crepitus. No petechiae Warm and dry. No visible cyanosis or pallor NEUROLOGIC: Alert, oriented x3. Motor_and_sensation_grossly_intact. No truncal ataxia. Gait_normal Psych: Normal mood and affect, normal judgment and insight - COORDINATION OF CARE Case was discussed with: Patient Abscess Incision and Drainage with irrigation by me: Location: Left superior back Anesthesia: None Technique: Offered incision with surgical blade after topical anesthesia, however patient declined stating that there is already a 1mm hole in the skin self expressing purulent material. Therefore unable to disrupt loculations or do packing Packing: None Complications: Neurovascularly intact post procedure Patient tolerated procedure well without complications Medical Decision Making/Plan: Differential diagnosis: Abscess versus cellulitis versus folliculitis versus cyst Patient is a pleasant well-appearing afebrile male with a self expressing 2 x 2 centimeter abscess to the left superior back. There is no involvement of midline. There are no focal neurologic deficits. Patient has no significant risk factors for spinal epidural emergency such as fever, IVDU, HIV, or anticoagulant use. Patient is neurologically intact without any lower extremity weakness / numbness, saddle anesthesia, urinary retention or fecal incontinence. No evidence of any emergent process of the spinal cord or cauda equina at this time. Patient was offered incision and drainage with surgical knife after local anesthesia, however he declined stating that he would prefer to use the existing skin defect. I was able to manually express approximately 2 cc of gross purulent material. No incision was performed, therefore loculations were not di srupted since patient declined. Tdap was updated. Will discharge patient home with Keflex and Bactrim. Recommend 2-day wound check to evaluate for improvement in symptoms. Strict return ER precautions were discussed. Pertinent results reviewed with the patient. I educated the patient on the current treatment plan including the risks, benefits, and alternatives. I also discussed the extent and limitations of the current evaluation. The patient expressed understanding and agreement with plan. I recommended PMD follow-up within 2days. Also advised that the patient return to the Emergency Department as soon as possible if they experience any new, persistent, or worsening symptoms. Allergies: Coded Allergies: No Known Allergies (Unverified , 06/14/18) COVID-19 Screening Contact w/high risk pt: No Recent Travel to affected area: No Experienced COVID-19 symptoms?: No COVID-19 Testing performed THREAD GRINDER TOOL: No Nursing Documentation-PMH Hx Hypertension: Yes - resolved Physical Exam Vital Signs Date Time Temp Pulse Resp B/P (MAP) Pulse Ox O2 Delivery O2 Flow Rate FiO2 3/12/21 23:58 97.9 80 16 110/75 (87) 100 Room Air Sp02 EP Interpretation: reviewed, normal Medical Decision Making Diagnostic Impression: Primary Impression: Abscess Last Vital Signs Date Time Temp Pulse Resp B/P (MAP) Pulse Ox O2 Delivery O2 Flow Rate FiO2 08/10/20 23:58 97.9 80 16 110/75 (87) 100 Room Air Disposition: HOME, SELF-CARE Admit Decision Time: 00:04 Scripts Acetaminophen* (TYLENOL EXTRA STRENGTH*) 500 Mg Tablet 500 MG ORAL Q8H PRN for Prn Headache/Temp > 101, #30 TAB 0 Refills Prov: Kelly Lofton D.O. 08/11/20 Cephalexin* (KEFLEX*) 500 Mg Capsule 500 MG ORAL EVERY 12 HOURS, #14 CAP 0 Refills Prov: Kelly Lofton D.O. 08/11/20 Trimethoprim/Sulfamethoxazole 160/800* (BACTRIM DS TABLET*) 1 Each Tablet 1 TAB ORAL Q12H, #14 TAB 0 Refills Prov: Kelly Lofton D.O. 08/11/20 Patient Instructions: Abscess Additional Instructions: Instructions for patient/lead principal technical architect: Follow up with your physician in 2 days for wound check. Take all medications with food. Take medications as prescribed. Return to the ER for any worsening pain, fever or concerning symptoms Follow-up with your doctor sooner if your condition requires a more timely clinical reevaluation. Return to the emergency department immediately if you feel that your condition is worsening or if you have any new or concerning symptoms. Review your discharge instructions and take any prescriptions given as instruct ed. [facility] PROVIDES FREE OR LOW-COST HEALTH SERVICES TO PEOPLE WHO CAN SHOW PROOF THAT THEY LIVE IN [facility]. TO FIND MORE CLINICS PARTNERED WITH [facility] TO PROVIDE SERVICE, PLEASE CALL . Kelly Lofton D.O. Aug 11, 2020 00:05
[2020-08-11] MEDS ORDERED: Tetanus/Diptheria/Pertussis IM ONE (00:15)
[2020-08-11 00:22] VITALS: BP 110/75
== END 2020-08-11 00:23 | disposition home or self-care (01) ==
LOC: EMR 23:55
DX: L02.212 Cutaneous abscess of back [any part, except buttock and flank] (principal); I10 Essential (primary) hypertension
CPT/HCPCS: 90471; 90715; Z7502; 99282